=== PATIENT | male | born 1965 | race African-American/Black ===

== ENCOUNTER 2017-08-31 09:00 | Inpatient (IN) | payer MEDICARE, MEDICAID ==
[2017-08-31] VITALS (8 sets, daily range): BP systolic 151–221; BP diastolic 71–90
[~2017-08-31] VITALS: Ht 177.8 cm; Wt 63.0 kg
[2017-08-31 09:58] LABS: BASOPHILS % (AUTO) 1.1 % (0.0-2.0); EOSINOPHILS % (AUTO) 0.1 % (0.0-3.0); HEMATOCRIT 44.1 % (42.0-52.0); HEMOGLOBIN 14.1 G/DL (14.2-18.0); LYMPHOCYTES % (AUTO) 11.5 % (20.0-45.0); MEAN CORPUSCULAR VOLUME 87 FL (80-99); MONOCYTES % (AUTO) 4.1 % (1.0-10.0); NEUTROPHILS % (AUTO) 83.1 % (45.0-75.0); PLATELET COUNT 267 K/UL (150-450); WHITE BLOOD COUNT 9.8 K/UL (4.8-10.8)
[2017-08-31 10:11] LABS: ANION GAP 11 mmol/L (5-15); BLOOD UREA NITROGEN 31 mg/dL (7-18); CARBON DIOXIDE 26 MMOL/L (21-32); CHLORIDE 103 MMOL/L (98-107); CREATININE 2.1 MG/DL (0.55-1.30); POTASSIUM 4.5 MMOL/L (3.5-5.1); SODIUM 140 MMOL/L (136-145)
[2017-08-31 10:16] LABS: ALANINE AMINOTRANSFERASE 116 U/L (12-78); ALBUMIN 4.5 G/DL (3.4-5.0); ALBUMIN/GLOBULIN RATIO 0.9 (1.0-2.7); ALKALINE PHOSPHATASE 359 U/L (46-116); ASPARTATE AMINO TRANSFERASE 50 U/L (15-37); BILIRUBIN,TOTAL 0.2 MG/DL (0.2-1.0)
[2017-08-31] MEDS ORDERED: Bacitracin Oint UD TOPIC ONE ×2 (11:15→11:16)
--- NOTE | 2017-08-31 12:07 | Emergency Room Report ---
History of Present Illness General Chief Complaint: Multiple Trauma/Fall Source: Patient, Medical Record Present Illness HPI This patient is a poor historian, he comes from a facility and all he says is " I fell." He cannot be more specific. He denies any specific complaint. No fever , no shortness of breath, no chest pain, no vomiting, no diarrhea, no abdominal pain, no syncope, LOC, dizziness, lightheadedness, headache. Hx. limited due to condition. Allergies: Coded Allergies: No Known Allergies (Unverified , 08/31/17) Nursing Documentation-[facility] Past Medical History: No History, Except For Hx Hypertension: Yes Hx Diabetes: Yes - on insulin Review of Systems Constitutional: Reports: no symptoms Eye: Reports: no symptoms ENT: Reports: no symptoms Respiratory: Reports: no symptoms Cardiovascular: Reports: no symptoms Gastrointestinal: Reports: no symptoms Genitourinary: Reports: no symptoms Musculoskeletal: Reports: no symptoms Skin: Reports: no symptoms Psychiatric: Reports: no symptoms Neurological: Reports: no symptoms Endocrine: Reports: no symptoms Hematologic/Lymphatic: Reports: no symptoms Allergic: Reports: no symptoms Physical Exam Vital Signs Date Time Temp Pulse Resp B/P (MAP) Pulse Ox O2 Delivery O2 Flow Rate FiO2 08/31/17 09:01 98.0 63 18 171/84 99 Room Air 98.1 Sp02 EP Interpretation: reviewed, normal General Appearance: normal inspection, well appearing, no apparent distress, alert, GCS 15, non-toxic, thin Head: normocephalic, other - there is a nonlinear 1.5 cm shallow lac above/ lateral right eyebrow. no eye involvement, PERRL, EOMI Eyes: bilateral eye normal inspection, bilateral eye PERRL, bilateral eye EOMI ENT: normal ENT inspection, hearing grossly normal, normal pharynx, no angioedema, normal voice, moist mucus membranes Neck: normal inspection, full range of motion, supple, no meningismus, no bony tend Respiratory: normal inspection, lungs clear, normal breath sounds, no rhonchi, no respiratory distress, no retraction, no accessory muscle use, no wheezing Cardiovascular #1: normal inspection, regular rate, rhythm, no edema Gastrointestinal: normal inspection, normal bowel sounds, non tender, soft, no mass, non-distended Musculoskeletal: gait/station normal, normal range of motion Neurologic: normal inspection, alert, oriented x3, responsive, motor strength/ tone normal Psychiatric: normal inspection, judgement/insight normal, memory normal Suicide Risk Assessment: Suicidal Ideation: No Had intent to initiate attempt: No Pt's plan for suicide attempt: No Has means to complete attempt: No Skin: normal inspection, normal color, no rash, warm/dry Medical Decision Making Diagnostic Impression: Primary Impression: Laceration of face Additional Impressions: Minor head injury Hypertension ER Course RN placed dermabond; I checked valproic to make sure not toxic. CT noted and I asked RN to call PMD to alert as I have no old records here. Paperwork with patient states chronic falls. I do not think hydrocephalus is acute issue. I did ct to r/o SDH. Last Vital Signs Date Time Temp Pulse Resp B/P (MAP) Pulse Ox O2 Delivery O2 Flow Rate FiO2 08/31/17 10:06 98.1 67 27 201/84 100 Room Air 98.1 Disposition: HOME, SELF-CARE Condition: Stable Referrals: NON PHYSICIAN (PCP) Maxime Barone M.D. Aug 31, 2017 12:07
--- NOTE | 2017-08-31 12:16 | Diagnostic Imaging Report ---
Indications: Pain, status post fall Technique: Spiral acquisitions obtained through the brain. Angled axial and coronal 5 x 5 mm slices were reconstructed. Total dose length product 1471.09 mGycm. CTDI vol(s) 70.38 mGy. Dose reduction achieved using automated exposure control Comparison: None. Findings: There is enlargement of the ventricles and extra axial CSF spaces, the former somewhat out of proportion to the latter, which is rather prominent for age. No acute intracranial hemorrhage or edema. No mass effect or midline shift. There is periventricular deep white matter mild low attenuation. Lacunar infarcts are seen in the bilateral basal ganglia. Intact calvarium. Visualized orbits and sinuses are unremarkable. Impression: Evidence of cerebral volume loss, out of proportion to patient's age Ventriculomegaly, out of proportion to degree of sulcal dilatation. Most likely due to to the above mentioned volume loss, but the possibility of hydrocephalus should also be considered Old lacunar infarcts in the basal ganglia Negative for acute intracranial bleed or mass effect The CT scanner at [facility] is accredited by the [employer] and the scans are performed using protocols designed to limit radiation exposure to as low as reasonably achievable to attain images of sufficient resolution adequate for diagnostic evaluation.
[2017-08-31] MEDS ORDERED: Labetalol 5mg/ml 20ml vial IV ONE ×2 (12:45→14:30)
[2017-08-31] MEDS ORDERED: COLACE100 MG ORAL (12:54)
[2017-08-31] MEDS ORDERED: ASPIR 8181 MG ORAL (12:54)
[2017-08-31] MEDS ORDERED: PHENYTOIN SODI100 MG ORAL (12:54)
[2017-08-31] MEDS ORDERED: METOPROLOL TART50 M1 ORAL (12:54)
[2017-08-31] MEDS ORDERED: TYLENOL EXTRA500 MG ORAL (12:54)
[2017-08-31] MEDS ORDERED: HYDRALAZINE HCL25 M1 ORAL (12:54)
[2017-08-31] MEDS ORDERED: CRANBERRY450 M3 PO (12:54)
[2017-08-31] MEDS ORDERED: LEVEMIR FL100 UNIT/1 SUBQ (12:54)
[2017-08-31] MEDS ORDERED: AMLODIPINE BESY10 MG ORAL (12:54)
[2017-08-31] MEDS ORDERED: CATAPRES0.1 MG ORAL (12:54)
[2017-08-31] MEDS ORDERED: ZESTRIL20 MG ORAL (12:54)
[2017-08-31] MEDS ORDERED: MULTIVITAMINS1 EAC2 ORAL (12:54)
[2017-08-31] MEDS ORDERED: MILK OF MA2400 MG/10 ORAL (12:54)
[2017-08-31] MEDS ORDERED: LACTULOSE20 GM/301 ORAL (12:54)
[2017-08-31] MEDS ORDERED: BENZTROPINE ME0.5 MG PO (12:54)
[2017-08-31] MEDS ORDERED: DEPAKOTE ER250 MG ORAL (12:54)
[2017-08-31] MEDS ORDERED: NEURONTIN100 MG ORAL (12:54)
[2017-08-31] MEDS ORDERED: HALOPERIDOL1 MG ORAL (12:54)
--- NOTE | 2017-08-31 16:08 | Diagnostic Imaging Report ---
Indications: Head pain, status post fall in the emergency room Technique: Spiral acquisitions obtained through the brain. Angled axial and coronal 5 x 5 mm slices were reconstructed. Total dose length product 1347.93 mGycm. CTDI vol(s) 70.38 mGy. Dose reduction achieved using automated exposure control Comparison: 4 hours earlier Findings: Again demonstrated is enlargement of the ventricles and extra-axial CSF spaces, the former out of proportion to the latter. No acute intracranial hemorrhage or edema, mass effect, nor midline shift. Small bilateral basal ganglia old lacunar infarcts are again demonstrated. The calvarium is intact. The sinuses and mastoids are clear. The orbits are unremarkable Impression: Negative for acute intracranial bleed or mass effect No significant ion exchange operator 4 hours Stable ventriculomegaly and sulcal dilatation, probably on the basis of cerebral volume loss, out of proportion to age. However, the possibility of hydrocephalus should also be considered given the disproportionate ventriculomegaly The CT scanner at [facility] is accredited by the [employer] and the scans are performed using protocols designed to limit radiation exposure to as low as reasonably achievable to attain images of sufficient resolution adequate for diagnostic evaluation.
[2017-08-31 16:12] LABS: INR 0.9 (0.9-1.1)
[2017-08-31 16:16] LABS: APPEARANCE,URINE CLEAR; BILIRUBIN, URINE NEGATIVE (NEGATIVE); COLOR,URINE PALE YELLOW; GLUCOSE, URINE (UA) 4+ (NEGATIVE); KETONES,URINE 2+ (NEGATIVE); LEUKOCYTE ESTERASE ,URINE NEGATIVE (NEGATIVE); NITRITE,URINE NEGATIVE (NEGATIVE); PH,URINE 8 (4.5-8.0); PROTEIN,URINE 3+ (NEGATIVE); UROBILINOGEN,URINE NORMAL MG/DL (0.0-1.0)
[2017-08-31 16:25] LABS: CKMB 0.7 NG/ML (0.0-3.6)
[2017-08-31] MEDS ORDERED: DOCUSATE SODIU250 MG ORAL (18:49)
[2017-08-31] MEDS ORDERED: DEPAKOTE250 MG PO (18:49)
[2017-08-31] MEDS ORDERED: LISINOPRIL40 MG ORAL (18:49)
[2017-08-31] MEDS ORDERED: Insulin Human Regular 100units/ml 3ml IV ONE (19:15)
[2017-08-31] MEDS: NovoLOG Insulin Flexpen SUBQ SCH (22:32)
[2017-08-31] MEDS ORDERED: Acetaminophen 500mg (ES) tab ORAL PRN (22:45)
[2017-08-31] MEDS ORDERED: Milk of Magnesia 30ml Ud ORAL PRN (22:45)
[2017-09-01] VITALS (10 sets, daily range): BP systolic 136–193; BP diastolic 56–86
--- NOTE | 2017-09-01 01:45 | History and Physical Report ---
DATE OF ADMISSION: 08/31/2017 CHIEF COMPLAINT: Status post fall. 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 The patient himself is a poor historian and unable to provide coherent history. The patient's history is obtained from custodial staff, ER physician. The patient was noted to have abrasion laceration in the forehead, who came to [facility] for evaluation. In the emergency room, the patient was managed medically and found to have significantly elevated systolic blood pressure greater than 190 with elevation of glucose greater than 400. The patient also experienced vomiting and given history of fall and head trauma. The patient underwent CT scan as well as a followup CT scan, which revealed no acute process. The patient's case was discussed with the ER physician and the patient certainly will need admission for further medical management. PAST MEDICAL HISTORY: Hypertension, psychosis, hyperlipidemia, debility, and gait disability. PAST SURGICAL HISTORY: No recent surgery. MEDICATIONS: Refer to medication reconciliation. ALLERGIES: See allergy list. SOCIAL HISTORY: The patient is a custodial resident. No reports of any . FAMILY HISTORY: Noncontributory. WORK HISTORY: Noncontributory. REVIEW OF SYSTEMS: Noted in HPI. The patient is a poor historian. PHYSICAL EXAMINATION: GENERAL: The patient is seen in the hospital emergency room. The patient's blood pressure systolic greater than 190, heart rate 85, afebrile, and respirations of 18. The patient is a frail elderly man, dressing in the gurney, with vomitus on the gurney. The patient with a laceration abrasion to the forehead, but otherwise, cranial nerves nonfocal. HEENT: Trachea midline. Non-labored respiration. HEART: Regular. ABDOMEN: Soft and nondistended. No rebound. No guarding. Nonrigid. BREASTS: Deferred. GENITOURINARY: Deferred. NEUROLOGIC: The patient is awake, alert, but confused. ASSESSMENT AND PLAN: 1. Hypertensive emergency with vomiting. The patient inpatient telemetry care for blood pressure control. 2. Diabetes, out of control. The patient to be admitted and aggressive insulin administration with IV fluids. 3. Head trauma. Continue ER checks. Continue monitoring. 4. Medical care. GI and DVT prophylaxis. 5. Please see orders for further treatment plans. Miki Denis MD DR: VISHAL JOB#: [id number] CC:
[2017-09-01] MEDS: NovoLOG Insulin Flexpen SUBQ SCH ×4 (06:00→21:00)
[2017-09-01] MEDS: Metoprolol Succinate XL 50mg tab ORAL SCH (08:27)
[2017-09-01] MEDS: Haloperidol 1mg tab ORAL SCH ×2 (08:27→18:40)
[2017-09-01] MEDS: Docusate 250mg cap ORAL SCH (08:28)
[2017-09-01] MEDS: HydrALAZINE 25mg tab ORAL SCH ×3 (08:30→18:40)
[2017-09-01] MEDS: Phenytoin 100mg cap ORAL SCH ×3 (08:30→18:39)
[2017-09-01] MEDS: Lactulose 10gm/15ml UDC ORAL SCH ×4 (08:30→22:12)
[2017-09-01] MEDS: Neosporin Oint Ud Pkt TOPIC SCH (08:30)
[2017-09-01] MEDS: Aspirin Baby 81mg ORAL SCH (08:30)
[2017-09-01] MEDS: Enoxaparin 30mg Inj SUBQ SCH (08:33)
[2017-09-01] MEDS: Lisinopril 10mg tab ORAL SCH (08:37)
[2017-09-01] MEDS: Levemir Flexpen SUBQ SCH ×2 (08:50→18:53)
--- NOTE | 2017-09-01 10:20 | Diagnostic Imaging Report ---
Indication: Abdominal pain Technique: Supine view of the abdomen Comparison: none Findings: Bowel gas pattern is unremarkable. Calcifications in the epigastric region may indicate chronic calcifying pancreatitis. There is right hip surgical hardware and posttraumatic deformity Impression: No acute process. Findings as noted
--- NOTE | 2017-09-01 10:39 | General Progress Note ---
Assessment/Plan Problem List: (1) Minor head injury ICD Codes: S09.90XA - Unspecified injury of head, initial encounter SNOMED: 585946622 (2) Laceration of face ICD Codes: S01.81XA - Laceration without foreign body of other part of head, initial encounter SNOMED: 429116277 (3) Hyperglycemia ICD Codes: R73.9 - Hyperglycemia, unspecified SNOMED: 60875402 (4) Intractable vomiting ICD Codes: R11.10 - Vomiting, unspecified SNOMED: 474822086 (5) Hypertension ICD Codes: I10 - Essential (primary) hypertension SNOMED: 09546745 Status: stable Assessment/Plan s/p fall laceration DM hyperglycemia hypertensive emergency psychosis Subjective Date patient seen: Sep 01, 2017 Time patient seen: 10:31 Constitutional: Reports: no symptoms HEENT: Reports: no symptoms Cardiovascular: Reports: no symptoms Respiratory: Reports: no symptoms Gastrointestinal/Abdominal: Reports: no symptoms Genitourinary: Reports: no symptoms Neurologic/Psychiatric: Reports: no symptoms Endocrine: Reports: no symptoms Hematologic/Lymphatic: Reports: no symptoms Allergies: Coded Allergies: No Known Allergies (Unverified , 08/31/17) Subjective no new issues; Objective Last 24 Hour Vital Signs Date Time Temp Pulse Resp B/P (MAP) Pulse Ox O2 Delivery O2 Flow Rate FiO2 09/01/17 08:37 178/80 09/01/17 08:30 178/80 09/01/17 08:28 178/80 09/01/17 08:28 94 178/80 09/01/17 08:27 94 178/80 09/01/17 08:00 97.8 94 20 178/80 (112) 98 97.8 09/01/17 06:20 100 167/75 (105) 09/01/17 06:05 198/80 09/01/17 05:14 98.7 93 17 164/80 (108) 96 98.7 09/01/17 04:00 97.5 92 20 184/80 (114) 97 97.5 09/01/17 04:00 95 09/01/17 02:19 136/56 (82) 09/01/17 01:41 98.2 87 20 193/86 (121) 98 98.2 09/01/17 01:34 193/86 09/01/17 00:00 98.2 87 20 193/86 (121) 98 98.2 09/01/17 00:00 94 08/31/17 20:20 36.35407 66 20 166/78 95 Room Air 207.5 97 08/31/17 20:20 97.5 97 20 166/78 (107) 95 97.5 08/31/17 20:20 Room Air 08/31/17 20:20 93 08/31/17 19:39 98.5 66 14 151/71 100 98.5 08/31/17 18:30 98.1 97 18 186/83 100 Room Air 98.1 08/31/17 17:09 205/86 08/31/17 16:38 98.1 93 27 158/85 100 Room Air 98.1 08/31/17 16:04 98.1 90 27 185/88 100 Room Air 98.1 08/31/17 14:40 202/81 08/31/17 14:38 91 214/86 08/31/17 14:15 98.1 87 23 202/87 100 Room Air 98.1 08/31/17 12:43 78 221/90 08/31/17 12:11 98.1 78 27 221/90 100 Room Air 98.1 Intake and Output 08/31/17 09/01/17 19:00 07:00 Intake Total 2200 ml 120 ml Output Total 250 ml Balance 1950 ml 120 ml Intake Oral 120 ml IV Total 2200 ml Output Emesis 250 ml # Voids 5 # Bowel Movements 2 Laboratory Tests 08/31/17 16:05: Urine Color Pale yellow, Urine Appearance Clear, Urine pH 8, Urine Specific [place] 1.010, Urine Protein 3+H, Urine Glucose (UA) 4+H, Urine Ketones 2+H, Urine Occult Blood 1+H, Urine Nitrite Negative, Urine Bilirubin Negative, Urine Urobilinogen Normal, Urine Leukocyte Esterase Negative, Urine RBC 0-2H, Urine WBC 0-2, Urine Squamous Epithelial Cells None, Urine Bacteria None Height (Feet): 5 Height (Inches): 10.00 Weight (Pounds): 139 General Appearance: no apparent distress EENT: PERRL/EOMI Neck: non-tender Cardiovascular: normal rate Respiratory/Chest: chest wall non-tender Abdomen: non tender Pelvis: normal rectal exam Extremities: non-tender Edema: trace edema Neurologic: alert Renzo Denis M.D. Sep 01, 2017 10:39
--- NOTE | 2017-09-01 20:09 | Cardiology Progress Note ---
Assessment/Plan Assessment/Plan being a poor historian hampers ability to accurately diagnose cause echo shows sever lvh and hyperdynamic systolic function not clear if he actually did have syncope or fall bp being so high makes volume depletion as a cause less likely but not impossible it is conceivable that if he did get dehydration in the settign of lvh and hyperdynamic systolic function that he may have expereince cavity obliteration and secondary syncop on the other hand cannot rule out the possibility fo seizure , level of his anti epileptic drug were low repeat cardaic enzyme , ekg , orthostatic vitals to be documented PT eval for safetly ivf to be dcd if not orthostatic [id number] thank you petey villalta [phone] Objective Last 24 Hour Vital Signs Date Time Temp Pulse Resp B/P (MAP) Pulse Ox O2 Delivery O2 Flow Rate FiO2 09/01/17 18:40 152/73 09/01/17 18:40 152/79 09/01/17 16:00 70 09/01/17 16:00 97.9 73 20 140/70 (93) 98 97.9 09/01/17 13:35 152/73 09/01/17 13:30 152/73 09/01/17 12:00 98.1 98 20 152/73 (99) 98 98.1 09/01/17 12:00 79 09/01/17 09:00 Room Air 09/01/17 08:37 178/80 09/01/17 08:30 178/80 09/01/17 08:28 178/80 09/01/17 08:28 94 178/80 09/01/17 08:27 94 178/80 09/01/17 08:00 97.8 94 20 178/80 (112) 98 97.8 09/01/17 08:00 92 09/01/17 06:20 100 167/75 (105) 09/01/17 06:05 198/80 09/01/17 05:14 98.7 93 17 164/80 (108) 96 98.7 09/01/17 04:00 97.5 92 20 184/80 (114) 97 97.5 09/01/17 04:00 95 09/01/17 02:19 136/56 (82) 09/01/17 01:41 98.2 87 20 193/86 (121) 98 98.2 7/19/18 01:34 193/86 09/01/17 00:00 98.2 87 20 193/86 (121) 98 98.2 09/01/17 00:00 94 08/31/17 20:20 36.50265 66 20 166/78 95 Room Air 207.5 97 08/31/17 20:20 97.5 97 20 166/78 (107) 95 97.5 08/31/17 20:20 Room Air 08/31/17 20:20 93 Intake and Output 08/31/17 09/01/17 19:00 07:00 Intake Total 2200 ml 120 ml Output Total 250 ml Balance 1950 ml 120 ml Intake Oral 120 ml IV Total 2200 ml Output Emesis 250 ml # Voids 5 # Bowel Movements 2 Petey Villalta MD Sep 01, 2017 20:09
[2017-09-02] VITALS: BP 155/72
[2017-09-02] MEDS: NovoLOG Insulin Flexpen SUBQ SCH ×4 (06:30→20:34)
[2017-09-02 07:00] VITALS: BP 157/77
[2017-09-02 07:15] LABS: EOSINOPHILS % (AUTO) 1.1 % (0.0-3.0); HEMATOCRIT 34.1 % (42.0-52.0); HEMOGLOBIN 11.2 G/DL (14.2-18.0); LYMPHOCYTES % (AUTO) 19.9 % (20.0-45.0); MEAN CORPUSCULAR VOLUME 86 FL (80-99); MONOCYTES % (AUTO) 8.4 % (1.0-10.0); NEUTROPHILS % (AUTO) 69.6 % (45.0-75.0); PLATELET COUNT 250 K/UL (150-450); RED BLOOD COUNT 3.94 M/UL (4.70-6.10); RED CELL DISTRIBUTION WIDTH 11.1 % (11.6-14.8); WHITE BLOOD COUNT 9.5 K/UL (4.8-10.8)
[2017-09-02 07:47] LABS: ALANINE AMINOTRANSFERASE 69 U/L (12-78); ALBUMIN 3.2 G/DL (3.4-5.0); ALBUMIN/GLOBULIN RATIO 0.8 (1.0-2.7); ALKALINE PHOSPHATASE 232 U/L (46-116); ANION GAP 6 mmol/L (5-15); ASPARTATE AMINO TRANSFERASE 38 U/L (15-37); BILIRUBIN,TOTAL 0.2 MG/DL (0.2-1.0); BLOOD UREA NITROGEN 19 mg/dL (7-18); CALCIUM 8.6 MG/DL (8.5-10.1); CARBON DIOXIDE 29 MMOL/L (21-32); CHLORIDE 112 MMOL/L (98-107); CREATININE 1.7 MG/DL (0.55-1.30); POTASSIUM 3.5 MMOL/L (3.5-5.1); SODIUM 147 MMOL/L (136-145)
[2017-09-02] MEDS: Lisinopril 10mg tab ORAL SCH (09:27)
[2017-09-02] MEDS: Haloperidol 1mg tab ORAL SCH ×2 (09:28→18:28)
[2017-09-02] MEDS: Docusate 250mg cap ORAL SCH (09:28)
[2017-09-02] MEDS: Neosporin Oint Ud Pkt TOPIC SCH (09:29)
[2017-09-02] MEDS: Metoprolol Succinate XL 50mg tab ORAL SCH (09:29)
[2017-09-02] MEDS: Aspirin Baby 81mg ORAL SCH (09:29)
[2017-09-02] MEDS: Phenytoin 100mg cap ORAL SCH ×3 (09:30→18:28)
[2017-09-02] MEDS: HydrALAZINE 25mg tab ORAL SCH ×3 (09:30→18:28)
[2017-09-02] MEDS: Lactulose 10gm/15ml UDC ORAL SCH ×4 (09:30→20:31)
[2017-09-02] MEDS: Enoxaparin 30mg Inj SUBQ SCH ×2 (09:32→20:34)
[2017-09-02] MEDS: Levemir Flexpen SUBQ SCH ×2 (09:47→18:46)
--- NOTE | 2017-09-02 10:15 | Consultation ---
DATE OF CONSULTATION: 09/01/2017 CARDIOLOGY CONSULTATION CONSULTING PHYSICIAN: Parveen Villalta M.D. REFERRING PHYSICIAN: Renzo Denis M.D. REASON FOR CONSULTATION: Hypertensive urgency and syncope. HISTORY OF PRESENT ILLNESS: This is a very unfortunate middle-aged gentleman who has multiple medical problems, is admitted to convalescent facility, as I understand that the patient was transferred from the convalescent facility (patient himself is very poor historian). Apparently, he told the emergency room that he fell, he is not able to provide more specific information and according to the sales property manager run sheet, the patient sustained a right eye laceration and was transferred for that 01:05 after his fall. Really, no other details available. The sales property manager run sheet indicated the patient had a blood pressure of 178/76 at the time he was found. Other records indicate the patient may have had syncopal events and subsequent fall off the toilet in the bathroom. The alf staff have provided the information to Dr. Denis. In the emergency room, the patient was found to have significantly elevated blood pressure, blood sugar, had several episodes of vomiting. He had two separate CT scans, which were unremarkable, but he has been admitted to the hospital for further management. This consultation requested for evaluation and management of possible syncopal episode. PAST MEDICAL HISTORY: According to the chart has a history of affective mood disorder, dysphagia, schizoaffective disorder, diabetes mellitus, pancreatitis, tobacco use disorder, schizophrenia, hypertensive crises, hyperlipidemia, type 2 diabetes, toxic metabolic encephalopathy, chronic stage 3 kidney disease, epilepsy, mononeuropathy, gastroesophageal reflux disease, gait disorder, history of fall, anemia and hypertension. MEDICATIONS: His medications reported at the convalescent facility include Depakote 250 mg 2 times daily. He is on hydralazine 25 mg 3 times a day, lactulose on a p.r.n. basis, 02:57 Lopressor 50 mg three times, milk of magnesia, multivitamins, Neurontin 100 mg 2 times daily, Dilantin, Tylenol, Zestril 40 mg 1 time daily. He takes amlodipine 10 mg daily, aspirin 81 mg, clonidine 0.1 mg q.8 h., Cogentin, Colace, and cranberry tablet extract. ALLERGIES: Really none known. SOCIAL HISTORY: He denies any smoking or drinking. He is a resident of a convalescent facility at [facility]. REVIEW OF SYSTEMS: GASTROINTESTINAL: He denies. GENITOURINARY: He denies. PULMONARY: He denies. CONSTITUTIONAL: He denies. NEUROLOGIC: He denies, however, the patient is quite confused and the information he provides is somewhat suspicious for 03:43. PHYSICAL EXAMINATION: GENERAL: Shows to be middle-aged gentleman, in no respiratory distress. VITAL SIGNS: Blood pressure is anywhere between 152/73, most recently 150/70 to 152/73, he has had blood pressures as high as 221/90 here in the emergency room, his heart rates in the 90s and temperature 97.8 degrees. NECK: Supple. No jugular venous distention. No abdominojugular reflux noted. LUNGS: Clear to auscultation and percussion. CARDIAC: S1 is normal. S2 is normal. Regular rate and rhythm. No heaves or thrills noted. There is a faint systolic ejection murmur noted. ABDOMEN: Soft and nontender. Positive bowel sounds. EXTREMITIES: There is no clubbing, cyanosis, or edema. LABORATORY AND DIAGNOSTIC DATA: White count of 9.8, hemoglobin 14.1, and platelet count of 267. Sodium is 130, potassium 4.5, chloride 102, bicarbonate 26, BUN 31, creatinine 2.4, and glucose of 04:34. AST and ALT are 50 and 116 respectively and alkaline phosphate was 259. Total CK of 142. Troponin of 0.04. Coags, INR was 0.9 and PTT of 22. Urinalysis appear unremarkable. Valproic acid is fairly unremarkable. 04:54 ventriculomegaly. Abdominal x-ray was fairly unremarkable does not have any . Carotid duplex shows mild degree of carotid stenosis between 30% alongside on left and 40% to 50% on the right side. Echocardiogram was performed shows hyperdynamic LV systolic function with ejection fraction of 70%-75%, severe left ventricular hypertrophy is documented. No significant valvular stenoses being documented. PA pressure of 28. His electrocardiogram shows sinus rhythm with left ventricular hypertrophy voltage criteria for left ventricular hypertrophy and some nonspecific T-wave changes. Early repolarization changes may be 06:01 EKG strip. Telemetry data is indicated reveals sinus rhythm. No bradycardia and no tachycardias have been documented. ASSESSMENT AND PLAN: 1. Altered level of consciousness. 2. Possible syncope. 3. Severe left ventricular hypertrophy. 4. Hyperdynamic left ventricular systolic function. 5. Diabetes mellitus. 6. Systemic hypertension. 7. Chronic kidney disease. 8. Schizophrenia. 9. Severe profound ventriculomegaly out of proportion for the patient's age. Dr. Denis, this patient was seen in cardiac consultation. The patient is unfortunately very poor historian. His blood pressure has been better controlled at the present time and appears appropriate. His echocardiogram was suspicious for hypertrophic disease secondary to left ventricular hypertrophy. It is 07:16 possible that with the combination of uncontrolled diabetes and hyperglycemia and glucosuria that he actually had a component of intracardiac volume depletion resulting to change in left ventricular output, possibly even to cavity obliteration, may have possibly resulting in long-term loss of consciousness. However, since this was not a witnessed event, other etiologies need to be entertained including the fact that he has had a history of seizures, on several antiepileptic medications, yet undetectable level of the one of the antiepileptic. His blood pressure has dropped and low since admission, back on the higher side 08:09 suspicious that the volume depletion as a cause may be much less probability. Other etiologies to be looked into seizures and of course nonsyncopal falls and cause of fall. I would recommend observation on telemetry for another 24 hours and 08:40 of his medications for blood pressure to avoid strict control of blood pressure to avoid contribution of hypotension. IV fluids can be discontinued if adequate p.o. intake is ascertained. A set of cardiac enzymes and EKG will be ordered for this evening as well as for tomorrow morning and evaluation for physical therapy has been ordered about safety of ambulation. Dr. Denis, thank you for allowing me to participate of this patient for safety ambulation. Orthostatic vitals will be ordered. IV fluids will be discontinued if the patient is not orthostatic. Antihypertensive medication to be continued. Parveen Villalta M.D. DR: NINA JOB#: [id number] CC:
[2017-09-02 12:00] VITALS: BP 138/67
--- NOTE | 2017-09-02 13:25 | Consultation ---
History of Present Illness General Date patient seen: Sep 01, 2017 Chief Complaint: Multiple Trauma/Fall Present Illness HPI 52 yo male who has multiple medical problems, and schizophrenia is admitted to convalescent facility.patient himself is very poor historian. the pt is easily agitated the pt stated that he wants to sleep. he fell and has a concussion Allergies: Coded Allergies: No Known Allergies (Unverified , 08/31/17) Medication History Scheduled Amlodipine Besylate* (Amlodipine Besylate*), 10 MG ORAL DAILY, (Reported) Aspirin* (Aspir 81*), 81 MG ORAL DAILY, (Reported) Benztropine Mesylate* (Cogentin*), 1 MG PO BID, (Reported) Clonidine Hcl* (Catapres*), 0.1 MG ORAL EVERY 8 HOURS, (Reported) Cranberry Fruit Concentrate (Cranberry), 2 TAB PO DAILY, (Reported) Divalproex Sodium* (Depakote*), 250 MG PO BID, (Reported) Docusate Sodium* (Docusate Sodium*), 250 MG ORAL DAILY, (Reported) Gabapentin* (Neurontin*), 100 MG ORAL BID, (Reported) Haloperidol* (Haldol*), 1 MG ORAL BID, (Reported) Hydralazine Hcl* (Hydralazine Hcl*), 25 MG ORAL TID, (Reported) Insulin Detemir (Levemir Flexpen), 15 UNITS SUBQ BID, (Reported) Lactulose (Lactulose*), 70 GM ORAL EVERY 6 HOURS, (Reported) Lisinopril* (Lisinopril*), 40 MG ORAL DAILY, (Reported) Metoprolol Tartrate* (Metoprolol Tartrate*), 50 MG ORAL BID, (Reported) Multivitamins* (Multivitamins*), 1 TAB ORAL DAILY, (Reported) Phenytoin Sodium Extended* (Phenytoin Sodium Extended*), 100 MG ORAL THREE TIMES A DAY, (Reported) Scheduled PRN Acetaminophen* (Tylenol Extra Strength*), 2 TAB ORAL Q6H PRN for Mild Pain/Temp > 100.5, (Reported) Magnesium Hydroxide* (Milk Of Magnesia*), 30 ML ORAL DAILY PRN for Constipation, (Reported) Discontinued Medications Docusate Sodium* (Colace*), 250 MG ORAL DAILY, (Reported) Discontinued Reason: Prescription changed Lisinopril* (Zestril*), 40 MG ORAL DAILY, (Reported) Discontinued Reason: Prescription changed Patient History Limited by: medical condition History Provided By: Patient, Medical Record, PMD Healthcare decision maker Resuscitation status Full Code Advanced Directive on File Past Medical/Surgical History Past Medical/Surgical History: (1) Minor head injury (2) Laceration of face (3) Hyperglycemia (4) Hypertension (5) Intractable vomiting Review of Systems Psychiatric: Reports: prior hx, anxiety, depressed feelings, emotional problems , hallucinations Physical Exam General Appearance: no apparent distress, alert Neurologic: responsive, depressed affect Last 24 Hour Vital Signs Date Time Temp Pulse Resp B/P (MAP) Pulse Ox O2 Delivery O2 Flow Rate FiO2 09/02/17 09:30 130/68 09/02/17 09:30 166/78 09/02/17 09:29 79 130/68 09/02/17 09:28 79 130/68 09/02/17 09:27 130/68 09/02/17 08:00 61 09/02/17 07:00 99.3 69 20 157/77 (103) 97 99.3 09/02/17 04:00 71 09/02/17 00:00 73 09/02/17 00:00 100 68 72 09/02/17 00:00 99.0 100 18 155/72 (99) 97 99.0 09/01/17 21:00 Room Air 09/01/17 20:00 65 09/01/17 20:00 100.0 68 18 143/60 (87) 97 100.0 09/01/17 18:40 152/73 09/01/17 18:40 152/79 09/01/17 16:00 70 09/01/17 16:00 97.9 73 20 140/70 (93) 98 97.9 09/01/17 13:35 152/73 09/01/17 13:30 152/73 Intake and Output 09/01/17 09/02/17 19:00 07:00 Intake Total 900 ml 200 ml Balance 900 ml 200 ml Intake Oral 900 ml 200 ml # Voids 5 # Bowel Movements 2 Laboratory Tests Test 09/01/17 21:20 09/02/17 06:21 Troponin I 0.889 ng/mL (0.000-0.056) 0.802 ng/mL (0.000-0.056) White Blood Count 9.5 K/UL (4.8-10.8) Red Blood Count 3.94 M/UL (4.70-6.10) L Hemoglobin 11.2 G/DL (14.2-18.0) L Hematocrit 34.1 % (42.0-52.0) L Mean Corpuscular Volume 86 FL (80-99) Mean Corpuscular Hemoglobin 28.5 PG (27.0-31.0) Mean Corpuscular Hemoglobin Concent 33.0 G/DL (32.0-36.0) Red Cell Distribution Width 11.1 % (11.6-14.8) L Platelet Count 250 K/UL (150-450) Mean Platelet Volume 7.0 FL (6.5-10.1) Neutrophils (%) (Auto) 69.6 % (45.0-75.0) Lymphocytes (%) (Auto) 19.9 % (20.0-45.0) L Monocytes (%) (Auto) 8.4 % (1.0-10.0) Eosinophils (%) (Auto) 1.1 % (0.0-3.0) Basophils (%) (Auto) 1.0 % (0.0-2.0) Sodium Level 147 MMOL/L (136-145) H Potassium Level 3.5 MMOL/L (3.5-5.1) Chloride Level 112 MMOL/L (98-107) H Carbon Dioxide Level 29 MMOL/L (21-32) Anion Gap 6 mmol/L (5-15) Blood Urea Nitrogen 19 mg/dL (7-18) H Creatinine 1.7 MG/DL (0.55-1.30) H Estimat Glomerular Filtration Rate 51.1 mL/min (>60) Glucose Level 58 MG/DL (74-106) L Calcium Level 8.6 MG/DL (8.5-10.1) Magnesium Level 2.3 MG/DL (1.8-2.4) Total Bilirubin 0.2 MG/DL (0.2-1.0) Aspartate Amino Transf (AST/SGOT) 38 U/L (15-37) H Alanine Aminotransferase (ALT/SGPT) 69 U/L (12-78) Alkaline Phosphatase 232 U/L (46-116) H Pro-B-Type Natriuretic Peptide 1249 pg/mL (0-125) H Total Protein 7.0 G/DL (6.4-8.2) Albumin 3.2 G/DL (3.4-5.0) L Globulin 3.8 g/dL Albumin/Globulin Ratio 0.8 (1.0-2.7) L Thyroid Stimulating Hormone (TSH) 0.611 uiU/mL (0.358-3.740) Height (Feet): 5 Height (Inches): 10.00 Weight (Pounds): 139 Medications Current Medications Medications (Trade) Dose Ordered Sig/Alessandra Route PRN Reason Start Time Stop Time Status Last Admin Dose Admin Acetaminophen (Tylenol) 500 mg Q4H PRN ORAL Mild Pain/Temp > 100.5 08/31/17 22:45 09/30/17 22:44 Amlodipine Besylate (Norvasc) 10 mg DAILY ORAL 09/01/17 09:00 10/01/17 08:59 09/02/17 09:28 Aspirin (ASA) 81 mg DAILY ORAL 09/01/17 09:00 10/01/17 08:59 09/02/17 09:29 Benztropine Mesylate (Cogentin) 1 mg BID IM 09/01/17 09:00 10/01/17 08:59 09/02/17 09:31 Clonidine HCl (Catapres Tab) 0.1 mg TID ORAL 09/01/17 09:00 10/01/17 08:59 09/02/17 09:30 Dextrose (Dextrose 50%) 25 ml STAT PRN IV Hypoglycemia 08/31/17 21:15 09/30/17 21:14 Dextrose (Dextrose 50%) 50 ml STAT PRN IV Hypoglycemia 08/31/17 21:15 09/30/17 21:14 09/02/17 07:05 Divalproex Sodium (Depakote) 250 mg EVERY 12 HOURS ORAL 09/01/17 09:00 10/01/17 08:59 09/02/17 09:28 Docusate Sodium (Colace) 250 mg DAILY ORAL 09/01/17 09:00 10/01/17 08:59 09/02/17 09:28 Enoxaparin Sodium (Lovenox) 30 mg DAILY SUBQ 09/01/17 09:00 10/01/17 08:59 09/02/17 09:32 Gabapentin (Neurontin) 100 mg BID ORAL 09/01/17 09:00 10/01/17 08:59 09/02/17 09:30 Haloperidol (Haldol) 1 mg BID ORAL 09/01/17 09:00 10/01/17 08:59 09/02/17 09:28 Hydralazine HCl (Apresoline) 10 mg Q4H PRN IV SBP>160 09/01/17 01:30 10/01/17 01:29 09/01/17 06:05 Hydralazine HCl (Apresoline) 25 mg TID ORAL 09/01/17 09:00 10/01/17 08:59 09/02/17 09:30 Insulin Aspart (NovoLOG) BEFORE MEALS AND HS SUBQ 08/31/17 22:30 09/30/17 22:29 09/01/17 17:29 Insulin Detemir (Levemir) 15 units BID SUBQ 09/01/17 09:00 10/01/17 08:59 09/02/17 09:47 Lactulose (Cephulac) 10 gm FOUR TIMES A DAY ORAL 09/01/17 09:00 10/01/17 08:59 09/02/17 09:30 Lisinopril (Zestril) 40 mg DAILY ORAL 09/01/17 09:00 10/01/17 08:59 09/02/17 09:27 Magnesium Hydroxide (Mom) 30 ml HSPRN PRN ORAL Constipation 08/31/17 22:45 09/30/17 22:44 Metoprolol Succinate (Toprol XL) 50 mg DAILY ORAL 09/01/17 09:00 10/01/17 08:59 09/02/17 09:29 Multivitamins (Multivitamins) 1 tab DAILY ORAL 09/01/17 09:00 10/01/17 08:59 09/02/17 09:28 Neomycin/ Polymyxin/ Bacitracin (Neosporin) 1 applic DAILY TOPIC 09/01/17 09:00 10/01/17 08:59 09/02/17 09:29 Phenytoin (Dilantin) 100 mg TID ORAL 09/01/17 09:00 10/01/17 08:59 09/02/17 09:30 Assessment/Plan Assessment/Plan schizophrenia will hold psych meds Andrey Bledsoe MD Sep 02, 2017 13:24
[2017-09-02 16:00] VITALS: BP 149/69
--- NOTE | 2017-09-02 17:02 | Cardiology Report ---
APPROVED REPORT EKG Measurement Heart [id number] HI 186P68 [id number] Normal sinus rhythm Possible Left atrial enlargement Left ventricular hypertrophy ST elevation, consider early repolarization, pericarditis, or injury Nonspecific T wave abnormality Abnormal ECG
--- NOTE | 2017-09-02 17:07 | Cardiology Report ---
APPROVED REPORT EKG Measurement Heart [id number] NE 168P20 [id number] Sinus rhythm with premature atrial complexes Left ventricular hypertrophy with repolarization abnormality ST elevation, consider anterior injury or acute infarct Abnormal ECG
--- NOTE | 2017-09-02 18:25 | Cardiology Progress Note ---
Assessment/Plan Assessment/Plan 1. Altered level of consciousness. 2. Possible syncope. 3. Severe left ventricular hypertrophy. 4. Hyperdynamic left ventricular systolic function. 5. Diabetes mellitus. 6. Systemic hypertension. 7. Chronic kidney disease. 8. Schizophrenia. 9. Severe profound ventriculomegaly out of proportion for the patient's age. 10. NSTEMI 11. Hypertrophic heart disease with lvot gradiet of 19 mmhg at rest echo reviewed hyperdyanmic lv systlic fucntion there is lvh concentric but the septum is worse trop increased still on upward trend on ecotrin will add statin he will not be able to consent for testing , sister may need to consent per peggy vang idenified [id number] listed as responsible democrat on snf trnasfer noted he has inverted t wave picture that would be expcected with lvh however his admission ekg did not show the t wave abnormality he may need further testing he deneis any cp but difficutl to tell with his mentation Subjective Cardiovascular: Denies: chest pain, lightheadedness Respiratory: Denies: shortness of breath Gastrointestinal/Abdominal: Denies: abdominal pain Genitourinary: Denies: burning Objective Last 24 Hour Vital Signs Date Time Temp Pulse Resp B/P (MAP) Pulse Ox O2 Delivery O2 Flow Rate FiO2 09/02/17 16:00 97.8 60 20 149/69 (95) 100 97.8 09/02/17 16:00 58 09/02/17 14:44 63 09/02/17 13:26 138/67 09/02/17 13:26 138/67 09/02/17 12:00 98.9 61 20 138/67 (90) 96 98.9 09/02/17 09:30 130/68 09/02/17 09:30 166/78 09/02/17 09:29 79 130/68 09/02/17 09:28 79 130/68 09/02/17 09:27 130/68 09/02/17 09:00 Room Air 09/02/17 08:00 61 09/02/17 07:00 99.3 69 20 157/77 (103) 97 99.3 09/02/17 04:00 71 09/02/17 00:00 73 09/02/17 00:00 100 68 72 09/02/17 00:00 99.0 100 18 155/72 (99) 97 99.0 09/01/17 21:00 Room Air 09/01/17 20:00 65 09/01/17 20:00 100.0 68 18 143/60 (87) 97 100.0 09/01/17 18:40 152/73 09/01/17 18:40 152/79 General Appearance: no apparent distress, alert Neck: supple Cardiovascular: normal rate Respiratory/Chest: lungs clear Abdomen: normal bowel sounds, non tender, soft Extremities: no swelling Intake and Output 09/01/17 09/02/17 19:00 07:00 Intake Total 900 ml 200 ml Balance 900 ml 200 ml Intake Oral 900 ml 200 ml # Voids 5 # Bowel Movements 2 Laboratory Tests Test 09/01/17 21:20 09/02/17 06:21 Troponin I 0.889 ng/mL (0.000-0.056) 0.802 ng/mL (0.000-0.056) White Blood Count 9.5 K/UL (4.8-10.8) Red Blood Count 3.94 M/UL (4.70-6.10) L Hemoglobin 11.2 G/DL (14.2-18.0) L Hematocrit 34.1 % (42.0-52.0) L Mean Corpuscular Volume 86 FL (80-99) Mean Corpuscular Hemoglobin 28.5 PG (27.0-31.0) Mean Corpuscular Hemoglobin Concent 33.0 G/DL (32.0-36.0) Red Cell Distribution Width 11.1 % (11.6-14.8) L Platelet Count 250 K/UL (150-450) Mean Platelet Volume 7.0 FL (6.5-10.1) Neutrophils (%) (Auto) 69.6 % (45.0-75.0) Lymphocytes (%) (Auto) 19.9 % (20.0-45.0) L Monocytes (%) (Auto) 8.4 % (1.0-10.0) Eosinophils (%) (Auto) 1.1 % (0.0-3.0) Basophils (%) (Auto) 1.0 % (0.0-2.0) Sodium Level 147 MMOL/L (136-145) H Potassium Level 3.5 MMOL/L (3.5-5.1) Chloride Level 112 MMOL/L (98-107) H Carbon Dioxide Level 29 MMOL/L (21-32) Anion Gap 6 mmol/L (5-15) Blood Urea Nitrogen 19 mg/dL (7-18) H Creatinine 1.7 MG/DL (0.55-1.30) H Estimat Glomerular Filtration Rate 51.1 mL/min (>60) Glucose Level 58 MG/DL (74-106) L Calcium Level 8.6 MG/DL (8.5-10.1) Magnesium Level 2.3 MG/DL (1.8-2.4) Total Bilirubin 0.2 MG/DL (0.2-1.0) Aspartate Amino Transf (AST/SGOT) 38 U/L (15-37) H Alanine Aminotransferase (ALT/SGPT) 69 U/L (12-78) Alkaline Phosphatase 232 U/L (46-116) H Pro-B-Type Natriuretic Peptide 1249 pg/mL (0-125) H Total Protein 7.0 G/DL (6.4-8.2) Albumin 3.2 G/DL (3.4-5.0) L Globulin 3.8 g/dL Albumin/Globulin Ratio 0.8 (1.0-2.7) L Thyroid Stimulating Hormone (TSH) 0.611 uiU/mL (0.358-3.740) Microbiology Date/Time Source Procedure Growth Status 08/31/17 17:05 Nasal Nares MRSA Culture - Final NO METHICILLIN RESISTANT STAPH AUREUS... Complete 08/31/17 17:05 Rectum VRE Culture - Final NO VANCOMYCIN RESISTANT ENTEROCOCCUS ... Complete 08/31/17 17:05 Rectum - Final NO CARBAPENEM-RESISTANT ENTEROBACTERI... Complete Parveen Villalta MD Sep 02, 2017 18:25
[2017-09-02 21:00] VITALS: BP 157/72
[2017-09-03] VITALS: BP 136/65
[2017-09-03 04:00] VITALS: BP 154/79
[2017-09-03] MEDS: NovoLOG Insulin Flexpen SUBQ SCH ×4 (06:15→20:35)
[2017-09-03 08:00] VITALS: BP 151/70
[2017-09-03] MEDS: Neosporin Oint Ud Pkt TOPIC SCH (09:05)
[2017-09-03] MEDS: Docusate 250mg cap ORAL SCH (09:05)
[2017-09-03] MEDS: Haloperidol 1mg tab ORAL SCH ×2 (09:05→17:49)
[2017-09-03] MEDS: Lactulose 10gm/15ml UDC ORAL SCH ×4 (09:05→20:36)
[2017-09-03] MEDS: Aspirin Baby 81mg ORAL SCH (09:06)
[2017-09-03] MEDS: Metoprolol Succinate XL 50mg tab ORAL SCH (09:06)
[2017-09-03] MEDS: Phenytoin 100mg cap ORAL SCH ×3 (09:06→17:48)
[2017-09-03] MEDS: HydrALAZINE 25mg tab ORAL SCH ×3 (09:06→17:48)
[2017-09-03] MEDS: Lisinopril 10mg tab ORAL SCH (09:07)
[2017-09-03] MEDS: Enoxaparin 30mg Inj SUBQ SCH ×2 (09:08→20:36)
[2017-09-03] MEDS: Levemir Flexpen SUBQ SCH ×2 (09:10→17:51)
--- NOTE | 2017-09-03 11:06 | Pulmonology Progress Note ---
Assessment/Plan Problems: (1) Non-ST elevation (NSTEMI) myocardial infarction (2) Ventricular hypertrophy (3) COPD (chronic obstructive pulmonary disease) (4) Psychosis (5) Hypertension (6) Diabetes Assessment/Plan f/u troponin f/u cardiology recommendations symptomatic treatment f/u psych recommendations respiratory treatment titrate fio2 to sat of 92% Subjective ROS Limited/Unobtainable: No Constitutional: Reports: no symptoms Respiratory: Reports: no symptoms Allergies: Coded Allergies: No Known Allergies (Unverified , 08/31/17) Objective Last 24 Hour Vital Signs Date Time Temp Pulse Resp B/P (MAP) Pulse Ox O2 Delivery O2 Flow Rate FiO2 09/03/17 09:11 151/70 09/03/17 09:07 151/70 09/03/17 09:06 68 151/70 09/03/17 09:06 151/70 09/03/17 09:06 68 151/70 09/03/17 09:00 Room Air 09/03/17 08:00 97.9 68 20 151/70 (97) 97 97.9 09/03/17 08:00 75 70 72 09/03/17 04:00 98.9 60 18 154/79 (104) 95 98.9 09/03/17 04:00 58 09/03/17 00:00 98.8 60 18 136/65 (88) 98 98.8 09/03/17 00:00 60 09/02/17 21:00 98.8 64 18 157/72 (100) 95 98.8 09/02/17 21:00 Room Air 09/02/17 20:00 64 09/02/17 18:28 149/69 09/02/17 18:27 149/69 09/02/17 16:00 97.8 60 20 149/69 (95) 100 97.8 09/02/17 16:00 58 09/02/17 14:44 63 09/02/17 13:26 138/67 09/02/17 13:26 138/67 09/02/17 12:00 98.9 61 20 138/67 (90) 96 98.9 Intake and Output 09/02/17 09/03/17 19:00 07:00 Intake Total 150 ml 800 ml Balance 150 ml 800 ml Intake Oral 150 ml 800 ml # Voids 1 4 General Appearance: WD/WN HEENT: normocephalic, atraumatic Respiratory/Chest: chest wall non-tender, lungs clear Cardiovascular: normal peripheral pulses, normal rate Abdomen: normal bowel sounds, soft, non tender Extremities: no cyanosis Skin: no rash 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 Complete 08/31/17 17:05 Rectum VRE Culture - Final NO VANCOMYCIN RESISTANT ENTEROCOCCUS ... Complete 08/31/17 17:05 Rectum - Final NO CARBAPENEM-RESISTANT ENTEROBACTERI... Complete Current Medications Medications (Trade) Dose Ordered Sig/Alessandra Route PRN Reason Start Time Stop Time Status Last Admin Dose Admin Acetaminophen (Tylenol) 500 mg Q4H PRN ORAL Mild Pain/Temp > 100.5 08/31/17 22:45 09/30/17 22:44 Amlodipine Besylate (Norvasc) 10 mg DAILY ORAL 09/01/17 09:00 10/01/17 08:59 09/03/17 09:06 Aspirin (ASA) 81 mg DAILY ORAL 09/01/17 09:00 10/01/17 08:59 09/03/17 09:06 Benztropine Mesylate (Cogentin) 1 mg BID IM 09/01/17 09:00 10/01/17 08:59 09/03/17 09:10 Clonidine HCl (Catapres Tab) 0.1 mg TID ORAL 09/01/17 09:00 10/01/17 08:59 09/03/17 09:11 Dextrose (Dextrose 50%) 25 ml STAT PRN IV Hypoglycemia 08/31/17 21:15 09/30/17 21:14 Dextrose (Dextrose 50%) 50 ml STAT PRN IV Hypoglycemia 08/31/17 21:15 09/30/17 21:14 09/02/17 07:05 Divalproex Sodium (Depakote) 250 mg EVERY 12 HOURS ORAL 09/01/17 09:00 10/01/17 08:59 09/03/17 09:05 Docusate Sodium (Colace) 250 mg DAILY ORAL 09/01/17 09:00 10/01/17 08:59 09/03/17 09:05 Enoxaparin Sodium (Lovenox) 30 mg Q12HR SUBQ 09/02/17 21:00 10/02/17 20:59 09/03/17 09:08 Gabapentin (Neurontin) 100 mg BID ORAL 09/01/17 09:00 10/01/17 08:59 09/03/17 09:06 Haloperidol (Haldol) 1 mg BID ORAL 09/01/17 09:00 10/01/17 08:59 09/03/17 09:05 Hydralazine HCl (Apresoline) 10 mg Q4H PRN IV SBP>160 09/01/17 01:30 10/01/17 01:29 09/01/17 06:05 Hydralazine HCl (Apresoline) 25 mg TID ORAL 09/01/17 09:00 10/01/17 08:59 09/03/17 09:06 Insulin Aspart (NovoLOG) BEFORE MEALS AND HS SUBQ 08/31/17 22:30 09/30/17 22:29 09/02/17 20:34 Insulin Detemir (Levemir) 15 units BID SUBQ 09/01/17 09:00 10/01/17 08:59 09/03/17 09:10 Lactulose (Cephulac) 10 gm FOUR TIMES A DAY ORAL 09/01/17 09:00 10/01/17 08:59 09/03/17 09:05 Lisinopril (Zestril) 40 mg DAILY ORAL 09/01/17 09:00 10/01/17 08:59 09/03/17 09:07 Magnesium Hydroxide (Mom) 30 ml HSPRN PRN ORAL Constipation 08/31/17 22:45 09/30/17 22:44 Metoprolol Succinate (Toprol XL) 50 mg DAILY ORAL 09/01/17 09:00 10/01/17 08:59 09/03/17 09:06 Multivitamins (Multivitamins) 1 tab DAILY ORAL 09/01/17 09:00 10/01/17 08:59 09/03/17 09:05 Neomycin/ Polymyxin/ Bacitracin (Neosporin) 1 applic DAILY TOPIC 09/01/17 09:00 10/01/17 08:59 09/03/17 09:05 Phenytoin (Dilantin) 100 mg TID ORAL 09/01/17 09:00 10/01/17 08:59 09/03/17 09:06 Donnie Barrios MD Sep 03, 2017 11:05
[2017-09-03 12:00] VITALS: BP 115/69
[2017-09-03 16:00] VITALS: BP 143/76
--- NOTE | 2017-09-03 17:16 | Cardiology Progress Note ---
Assessment/Plan Assessment/Plan chest pain with positive troponin at present time asymptomatic Subjective Subjective The patient is sleeping,m when aroused, denies chest pain or dyspnea Objective Last 24 Hour Vital Signs Date Time Temp Pulse Resp B/P (MAP) Pulse Ox O2 Delivery O2 Flow Rate FiO2 09/03/17 16:00 98.6 58 20 143/76 (98) 96 98.6 09/03/17 15:41 58 09/03/17 13:25 115/69 09/03/17 13:25 115/69 09/03/17 12:00 98.2 63 18 115/69 (84) 98 98.2 09/03/17 11:51 64 09/03/17 09:11 151/70 09/03/17 09:07 151/70 09/03/17 09:06 68 151/70 09/03/17 09:06 151/70 09/03/17 09:06 68 151/70 09/03/17 09:00 Room Air 09/03/17 08:00 97.9 68 20 151/70 (97) 97 97.9 09/03/17 08:00 75 70 72 09/03/17 07:57 67 09/03/17 04:00 98.9 60 18 154/79 (104) 95 98.9 09/03/17 04:00 58 09/03/17 00:00 98.8 60 18 136/65 (88) 98 98.8 09/03/17 00:00 60 09/02/17 21:00 98.8 64 18 157/72 (100) 95 98.8 09/02/17 21:00 Room Air 09/02/17 20:00 64 09/02/17 18:28 149/69 09/02/17 18:27 149/69 General Appearance: no apparent distress EENT: PERRL/EOMI Neck: non-tender Rhythm: NSR Cardiovascular: normal rate Respiratory/Chest: crackles/rales Abdomen: soft Extremities: trace edema Intake and Output 09/02/17 09/03/17 19:00 07:00 Intake Total 150 ml 800 ml Balance 150 ml 800 ml Intake Oral 150 ml 800 ml # Voids 1 4 Lashon Leonard MD Sep 03, 2017 17:16
[2017-09-03 20:00] VITALS: BP 122/69
[2017-09-04] VITALS: BP 141/78
[2017-09-04 04:00] VITALS: BP 139/80
[2017-09-04] MEDS: NovoLOG Insulin Flexpen SUBQ SCH ×3 (06:03→16:30)
[2017-09-04 08:00] VITALS: BP 135/68
[2017-09-04] MEDS: Lactulose 10gm/15ml UDC ORAL SCH ×2 (08:17→12:19)
[2017-09-04] MEDS: Haloperidol 1mg tab ORAL SCH (08:18)
[2017-09-04] MEDS: Docusate 250mg cap ORAL SCH (08:19)
[2017-09-04] MEDS: Aspirin Baby 81mg ORAL SCH (08:19)
[2017-09-04] MEDS: Phenytoin 100mg cap ORAL SCH ×2 (08:19→12:19)
[2017-09-04] MEDS: Neosporin Oint Ud Pkt TOPIC SCH (08:20)
[2017-09-04] MEDS: Enoxaparin 30mg Inj SUBQ SCH (08:21)
[2017-09-04] MEDS: Levemir Flexpen SUBQ SCH (08:29)
[2017-09-04] MEDS: Lisinopril 10mg tab ORAL SCH (08:30)
[2017-09-04] MEDS: Metoprolol Succinate XL 50mg tab ORAL SCH (08:32)
[2017-09-04] MEDS: HydrALAZINE 25mg tab ORAL SCH ×2 (08:33→12:21)
--- NOTE | 2017-09-04 11:27 | General Progress Note ---
Assessment/Plan Problem List: (1) Minor head injury ICD Codes: S09.90XA - Unspecified injury of head, initial encounter SNOMED: 726998626 Qualifiers: Qualified Codes: S09.90XD - Unspecified injury of head, subsequent encounter (2) Laceration of face ICD Codes: S01.81XA - Laceration without foreign body of other part of head, initial encounter SNOMED: 825514578 Qualifiers: Qualified Codes: S01.81XD - Laceration without foreign body of other part of head, subsequent encounter (3) Hyperglycemia ICD Codes: R73.9 - Hyperglycemia, unspecified SNOMED: 13534282 (4) Intractable vomiting ICD Codes: R11.10 - Vomiting, unspecified SNOMED: 023579396 Qualifiers: (5) Hypertension ICD Codes: I10 - Essential (primary) hypertension SNOMED: 62163696 Qualifiers: Qualified Codes: I10 - Essential (primary) hypertension Status: stable, progressing Assessment/Plan late entry improved w/ medical therapy follow specialists recommendations monitor symptoms supportive care see orders; Subjective Date patient seen: Sep 02, 2017 Time patient seen: 09:00 ROS Limited/Unobtainable: Yes Allergies: Coded Allergies: No Known Allergies (Unverified , 08/31/17) Subjective no new issues; Objective Last 24 Hour Vital Signs Date Time Temp Pulse Resp B/P (MAP) Pulse Ox O2 Delivery O2 Flow Rate FiO2 09/04/17 09:00 Room Air 09/04/17 08:33 135/68 09/04/17 08:33 135/68 09/04/17 08:32 58 135/68 09/04/17 08:32 58 135/68 09/04/17 08:30 135/68 09/04/17 08:00 98.4 62 18 135/68 (90) 96 98.4 09/04/17 08:00 59 62 68 09/04/17 08:00 61 09/04/17 04:00 97.6 72 18 139/80 (99) 96 97.6 09/04/17 04:00 69 09/04/17 00:00 58 09/04/17 00:00 97.5 57 18 141/78 (99) 98 97.5 09/03/17 21:00 Room Air 09/03/17 20:00 98.0 62 19 122/69 (86) 97 98.0 09/03/17 20:00 60 09/03/17 17:48 143/76 09/03/17 17:48 143/76 09/03/17 16:00 98.6 58 20 143/76 (98) 96 98.6 09/03/17 15:41 58 09/03/17 13:25 115/69 09/03/17 13:25 115/69 09/03/17 12:00 98.2 63 18 115/69 (84) 98 98.2 09/03/17 11:51 64 Intake and Output 09/03/17 09/04/17 19:00 07:00 Intake Total 260 ml Balance 260 ml Intake Oral 260 ml # Voids 1 1 Height (Feet): 5 Height (Inches): 10.00 Weight (Pounds): 139 General Appearance: WD/WN EENT: PERRL/EOMI Neck: non-tender Cardiovascular: normal rate Respiratory/Chest: normal breath sounds Abdomen: soft Pelvis: no masses Genitourinary/Rectal: other Extremities: other Edema: other Renzo Denis M.D. Sep 04, 2017 11:27
--- NOTE | 2017-09-04 11:33 | General Progress Note ---
Assessment/Plan Problem List: (1) Minor head injury ICD Codes: S09.90XA - Unspecified injury of head, initial encounter SNOMED: 581813960 Qualifiers: Qualified Codes: S09.90XD - Unspecified injury of head, subsequent encounter (2) Laceration of face ICD Codes: S01.81XA - Laceration without foreign body of other part of head, initial encounter SNOMED: 151035624 Qualifiers: Qualified Codes: S01.81XD - Laceration without foreign body of other part of head, subsequent encounter (3) Hyperglycemia ICD Codes: R73.9 - Hyperglycemia, unspecified SNOMED: 28860193 (4) Intractable vomiting ICD Codes: R11.10 - Vomiting, unspecified SNOMED: 537128073 Qualifiers: (5) Hypertension ICD Codes: I10 - Essential (primary) hypertension SNOMED: 91691127 Qualifiers: Qualified Codes: I10 - Essential (primary) hypertension Status: stable, tolerating diet Assessment/Plan late entry improved w/ medical therapy monitor vitals follow specialists recommendations monitor symptoms supportive care see orders; Subjective Date patient seen: Sep 03, 2017 Time patient seen: 11:32 ROS Limited/Unobtainable: Yes Allergies: Coded Allergies: No Known Allergies (Unverified , 08/31/17) All Systems: reviewed and negative except above Subjective no new issues; Objective Last 24 Hour Vital Signs Date Time Temp Pulse Resp B/P (MAP) Pulse Ox O2 Delivery O2 Flow Rate FiO2 09/04/17 09:00 Room Air 09/04/17 08:33 135/68 09/04/17 08:33 135/68 09/04/17 08:32 58 135/68 09/04/17 08:32 58 135/68 09/04/17 08:30 135/68 09/04/17 08:00 98.4 62 18 135/68 (90) 96 98.4 09/04/17 08:00 59 62 68 09/04/17 08:00 61 09/04/17 04:00 97.6 72 18 139/80 (99) 96 97.6 09/04/17 04:00 69 09/04/17 00:00 58 09/04/17 00:00 97.5 57 18 141/78 (99) 98 97.5 09/03/17 21:00 Room Air 09/03/17 20:00 98.0 62 19 122/69 (86) 97 98.0 09/03/17 20:00 60 09/03/17 17:48 143/76 09/03/17 17:48 143/76 09/03/17 16:00 98.6 58 20 143/76 (98) 96 98.6 09/03/17 15:41 58 09/03/17 13:25 115/69 09/03/17 13:25 115/69 09/03/17 12:00 98.2 63 18 115/69 (84) 98 98.2 09/03/17 11:51 64 Intake and Output 09/03/17 09/04/17 19:00 07:00 Intake Total 260 ml Balance 260 ml Intake Oral 260 ml # Voids 1 1 Height (Feet): 5 Height (Inches): 10.00 Weight (Pounds): 139 General Appearance: no apparent distress EENT: normal ENT inspection Neck: supple Cardiovascular: normal rate Respiratory/Chest: lungs clear Abdomen: non tender Pelvis: other Genitourinary/Rectal: other Extremities: other Edema: trace edema Neurologic: alert, responsive Renzo Denis M.D. Sep 04, 2017 11:33
--- NOTE | 2017-09-04 11:35 | Discharge Summary ---
Discharge Summary Hospital Course Date of Admission Aug 31, 2017 at 15:36 Date of Discharge 09/04/17 Admitting Diagnosis HYPERGLYCEMIA,INTRACTABLE VOMITING HPI Romero Madera is a 52 year old male who was admitted on Aug 31, 2017 at 15:36 for Hyperglycemia,Interactable Vomiting Consultations cardiology psychiatry pulmonology Procedures none Hospital Course patient was admitted and treated medically; patient's vitals and laboratory parameters improved and patient to be dc to snf for continued care; Discharge Condition Upon Discharge: stable Discharge Disposition Patient was discharged to snf Discharge Diagnoses: (1) Hyperglycemia (2) COPD (chronic obstructive pulmonary disease) (3) Psychosis (4) Ventricular hypertrophy (5) Non-ST elevation (NSTEMI) myocardial infarction (6) Diabetes (7) Minor head injury (8) Laceration of face (9) Hypertension (10) Intractable vomiting Renzo Denis M.D. Sep 04, 2017 11:35
[2017-09-04] MEDS ORDERED: HYDRALAZINE HCL25 M1 ORAL (11:38)
[2017-09-04 12:00] VITALS: BP 150/63
[2017-09-04 16:00] VITALS: BP 150/75
--- NOTE | 2017-09-04 20:00 | Cardiology Progress Note ---
Assessment/Plan Assessment/Plan chest pain with positive troponin at present time asymptomatic Subjective Subjective The patient is sleeping, when aroused, denies chest pain or dyspnea Objective Last 24 Hour Vital Signs Date Time Temp Pulse Resp B/P (MAP) Pulse Ox O2 Delivery O2 Flow Rate FiO2 09/04/17 16:00 98.4 18 150/75 (100) 96 98.4 09/04/17 12:21 150/63 09/04/17 12:20 150/63 09/04/17 12:00 98.2 18 150/63 (92) 96 98.2 09/04/17 09:00 Room Air 09/04/17 08:33 135/68 09/04/17 08:33 135/68 09/04/17 08:32 58 135/68 09/04/17 08:32 58 135/68 09/04/17 08:30 135/68 09/04/17 08:00 98.4 62 18 135/68 (90) 96 98.4 09/04/17 08:00 59 62 68 09/04/17 08:00 61 09/04/17 04:00 97.6 72 18 139/80 (99) 96 97.6 09/04/17 04:00 69 09/04/17 00:00 58 09/04/17 00:00 97.5 57 18 141/78 (99) 98 97.5 09/03/17 21:00 Room Air General Appearance: no apparent distress EENT: PERRL/EOMI Neck: supple Rhythm: NSR Cardiovascular: regular rhythm Respiratory/Chest: lungs clear Abdomen: non tender Extremities: non-tender Intake and Output 09/03/17 09/04/17 19:00 07:00 Intake Total 260 ml Balance 260 ml Intake Oral 260 ml # Voids 1 1 Lashon Leonard MD Sep 04, 2017 20:00
== END 2017-09-04 17:10 | DRG 637 ==
LOC: EDBD 09:00 → EMR 09:48 → 2E 15:36 → EDBEDREQ 16:28 → 2E 09-01 00:04
DX: E11.65 Type 2 diabetes mellitus with hyperglycemia (principal); I21.4 Non-ST elevation (NSTEMI) myocardial infarction; S06.0X9A Concussion with loss of consciousness of unspecified duration, initial encounter; I16.0 Hypertensive urgency; S01.01XA Laceration without foreign body of scalp, initial encounter; F29 Unspecified psychosis not due to a substance or known physiological condition; S01.81XA Laceration without foreign body of other part of head, initial encounter; W19.XXXA Unspecified fall, initial encounter; Y92.121 Bathroom in nursing home as the place of occurrence of the external cause; J44.9 Chronic obstructive pulmonary disease, unspecified; I51.7 Cardiomegaly; F25.9 Schizoaffective disorder, unspecified; E11.22 Type 2 diabetes mellitus with diabetic chronic kidney disease; I12.9 Hypertensive chronic kidney disease with stage 1 through stage 4 chronic kidney disease, or unspecified chronic kidney disease; N18.9 Chronic kidney disease, unspecified; G40.909 Epilepsy, unspecified, not intractable, without status epilepticus; R13.10 Dysphagia, unspecified; E78.5 Hyperlipidemia, unspecified; R26.89 Other abnormalities of gait and mobility
CPT/HCPCS: 36415; 70450; 74018; 80053; 80164; 81003; 82550; 82553; 82962; 83735; 83880; 84443; 84484; 85025; 85610; 85730; 87081; 93005; 93306; 93880; 93970; 99285; J1815; S5561

== ENCOUNTER 2019-04-20 20:02 | Inpatient (IN) | payer MEDICARE, MEDICAID ==
[~2019-04-20] VITALS: Ht 177.8 cm; Wt 83.9 kg
[~2019-04-20 20:02] MED LIST: AMLODIPINE BESY10 MG ORAL; ASPIR 8181 MG ORAL; BENZTROPINE ME0.5 MG PO; CATAPRES0.1 MG ORAL; COLACE100 MG ORAL; CRANBERRY450 M3 PO; DEPAKOTE ER250 MG ORAL; DEPAKOTE250 MG PO; DOCUSATE SODIU250 MG ORAL; HALOPERIDOL1 MG ORAL; HYDRALAZINE HCL25 M1 ORAL; LACTULOSE20 GM/301 ORAL; LEVEMIR FL100 UNIT/1 SUBQ; LISINOPRIL40 MG ORAL; METOPROLOL TART50 M1 ORAL; MILK OF MA2400 MG/10 ORAL; MULTIVITAMINS1 EAC2 ORAL; NEURONTIN100 MG ORAL; PHENYTOIN SODI100 MG ORAL; TYLENOL EXTRA500 MG ORAL; ZESTRIL20 MG ORAL
--- NOTE | 2019-04-20 20:15 | NUR ---
ED Nurse Note: Recieved pt BIBA from SNF facility with c/o mechanical fall, pt had fall about 4pm, denies k.o or any injuries, pt is awake, alert and oriented x 2, disoriented to date and time, pt is calm and cooperative, placed on cardiac monitoring and seizure precautions with side rails with padded rails, pt has ACD intact in left chest, denies pain, will continue to closely monitor and preapre for admission.
[2019-04-20] MEDS ORDERED: ATORVASTATIN CA40 MG ORAL (20:30)
[2019-04-20] MEDS ORDERED: COLACE100 MG ORAL (20:30)
[2019-04-20] MEDS ORDERED: FLEET ENEMA133 ML RECTAL (20:31)
[2019-04-20] MEDS ORDERED: NORVASC10 MG ORAL (20:32)
[2019-04-20] MEDS ORDERED: ZYPREXA2.5 MG ORAL (20:33)
[2019-04-20] MEDS ORDERED: TERAZOSIN HCL1 MG ORAL (20:34)
--- NOTE | 2019-04-20 20:34 | Diagnostic Imaging Report ---
Exam: CT head without contrast History: Syncope Comparison: 08/31/2017 Technique more: Axial noncontrast head CT. CTDI is 53.4 mGy and DLP is 1066.4 mGy-cm. Technique more: One or more of the following dose reduction techniques were used: automated exposure control, adjustment of the mA and/or kV according to patient size, use of iterative reconstruction technique. Findings: Prominence of the ventricles and extra-axial CSF spaces consistent with involutional changes. No acute intracranial hemorrhage mass-effect or edema. Paranasal sinuses, mastoid air cells are normal. Impression: 1. No acute intracranial hemorrhage mass-effect or edema.
--- NOTE | 2019-04-20 20:47 | Diagnostic Imaging Report ---
Exam: Chest 1 view History: Syncope Findings: Trachea is midline mild linear scarring at the right lateral lung. Left chest wall cardiac pacer with single lead extending into the right heart. Mild bilateral shoulder degenerative changes. Lungs are otherwise. Clear costophrenic negative. Impression: 1. Linear atelectasis/scarring at the lateral right lung base.
[2019-04-20 21:22] LABS: ANION GAP 7 mmol/L (5-15); BASOPHILS % (AUTO) 1.9 % (0.0-2.0); BLOOD UREA NITROGEN 41 mg/dL (7-18); CALCIUM 8.4 MG/DL (8.5-10.1); CARBON DIOXIDE 27 MMOL/L (21-32); CHLORIDE 107 MMOL/L (98-107); CREATININE 2.2 MG/DL (0.55-1.30); EOSINOPHILS % (AUTO) 2.2 % (0.0-3.0); HEMATOCRIT 32.7 % (42.0-52.0); HEMOGLOBIN 10.4 G/DL (14.2-18.0); LYMPHOCYTES % (AUTO) 22.2 % (20.0-45.0); MEAN CORPUSCULAR VOLUME 88 FL (80-99); MONOCYTES % (AUTO) 8.9 % (1.0-10.0); NEUTROPHILS % (AUTO) 64.9 % (45.0-75.0); PLATELET COUNT 209 K/UL (150-450); RED BLOOD COUNT 3.71 M/UL (4.70-6.10); RED CELL DISTRIBUTION WIDTH 12.6 % (11.6-14.8); SODIUM 141 MMOL/L (136-145)
[2019-04-20 21:25] VITALS: BP 184/75
[2019-04-20 21:27] LABS: INR 0.9 (0.9-1.1)
[2019-04-20 21:29] LABS: ALANINE AMINOTRANSFERASE 67 U/L (12-78); ALBUMIN 3.3 G/DL (3.4-5.0); ALBUMIN/GLOBULIN RATIO 0.9 (1.0-2.7); ALKALINE PHOSPHATASE 243 U/L (46-116); ASPARTATE AMINO TRANSFERASE 37 U/L (15-37); BILIRUBIN,TOTAL 0.1 MG/DL (0.2-1.0)
--- NOTE | 2019-04-20 21:36 | Emergency Room Report ---
History of Present Illness General Chief Complaint: Multiple Trauma/Fall Source: Patient, EMS Present Illness HPI Patient apparently fell and hit his head. Patient is taking anticoagulation ( according to med recon - only aspirin). Patient has a history of Alzheimer's dementia and cannot remember what happened. Patient denies any pain at this time. 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 Reviewed Nursing Documentation: PMH: Agreed; PSxH: Agreed Nursing Documentation-PMH Hx Cardiac Problems: Yes - HTN, High Cholesterol, Hypertensive Chrisis, cardiomegaly Hx Hypertension: Yes - anemia Hx Pacemaker: Yes - ICD Hx COPD: Yes Hx Diabetes: Yes - CKD STAGE 3 Hx Cancer: No Hx Gastrointestinal Problems: Yes - dysphagia, Pancreatitis,GERD,chronic pancreatitis History Of Psychiatric Problem: Yes - schizoaffective disorder,depression, psychosis Hx Neurological Problems: Yes - Seizures, Epilepsy, Encephalopathy,cataract 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 Review of Systems All Other Systems: limited Physical Exam Vital Signs Date Time Temp Pulse Resp B/P (MAP) Pulse Ox O2 Delivery O2 Flow Rate FiO2 04/20/19 20:04 98.1 58 20 182/71 (108) 96 Room Air Sp02 EP Interpretation: reviewed, normal General Appearance: well appearing, no apparent distress, non-toxic, thin, other - Poor recent memory Head: normocephalic, other - Denies pain Eyes: bilateral eye normal inspection, bilateral eye PERRL, bilateral eye EOMI ENT: moist mucus membranes - No lingual trauma Neck: full range of motion, supple, no bony tend Respiratory: chest non-tender, lungs clear, normal breath sounds Cardiovascular #1: regular rate, rhythm, no edema Cardiovascular #2: 2+ radial (R) Gastrointestinal: normal inspection, normal bowel sounds, non tender, no mass, non-distended Genitourinary: no CVA tenderness Musculoskeletal: back normal, normal range of motion, moves extm spontaneously Neurologic: alert, motor strength/tone normal, 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 as tested, oriented - X2, sensory intact, cerebellar normal, speech normal Psychiatric: mood/affect normal - Poor recent memory Skin: no rash, warm/dry, other - Slightly pale Medical Decision Making Diagnostic Impression: Primary Impression: Syncope Qualified Codes: R55 - Syncope and collapse Additional Impressions: Head trauma Qualified Codes: S09.90XA - Unspecified injury of head, initial encounter Elevated troponin Acute on chronic renal failure Qualified Codes: N17.9 - Acute kidney failure, unspecified; N18.3 - Chronic kidney disease, stage 3 (moderate) Subtherapeutic anti-seizure levels Hypertension Qualified Codes: I10 - Essential (primary) hypertension ER Course Patient presents with head trauma allegedly on anticoagulation. Patient cannot give history due to Alzheimer's disease. Differential includes syncope, brain bleed, contusion, concussion, electrolyte imbalance amongst others. Evaluation with EKG, CT the head, chest x-ray and labs. Patient placed on a environmental monitoring technician for the possibility of syncope. EKG with LVH and J-point elevation. No reciprocal changes. Chest x-ray atelectasis bases. Normal white count. CMP with elevated BUN and creatinine above previous levels. Glucose 212. Called with minimally elevated troponin. EKG without injury. Left ventricular hypertrophy with ST elevation consistent with that versus pericarditis. Compare with 08/2017 EKG - ST/J point elevation is knew. BUN and creatinine more elevated than in the past. Late addition of Dilantin and valproic acid reveal subtherapeutic levels. Admitted telemetry Dr. Wasserman. Laboratory Tests Test 04/20/19 20:40 White Blood Count 7.0 K/UL (4.8-10.8) Red Blood Count 3.71 M/UL (4.70-6.10) L Hemoglobin 10.4 G/DL (14.2-18.0) L Hematocrit 32.7 % (42.0-52.0) L Mean Corpuscular Volume 88 FL (80-99) Mean Corpuscular Hemoglobin 28.2 PG (27.0-31.0) Mean Corpuscular Hemoglobin Concent 31.9 G/DL (32.0-36.0) L Red Cell Distribution Width 12.6 % (11.6-14.8) Platelet Count 209 K/UL (150-450) Mean Platelet Volume 8.0 FL (6.5-10.1) Neutrophils (%) (Auto) 64.9 % (45.0-75.0) Lymphocytes (%) (Auto) 22.2 % (20.0-45.0) Monocytes (%) (Auto) 8.9 % (1.0-10.0) Eosinophils (%) (Auto) 2.2 % (0.0-3.0) Basophils (%) (Auto) 1.9 % (0.0-2.0) Prothrombin Time 9.9 SEC (9.30-11.50) Prothrombin Time INR 0.9 (0.9-1.1) Sodium Level 141 MMOL/L (136-145) Potassium Level 5.0 MMOL/L (3.5-5.1) Chloride Level 107 MMOL/L (98-107) Carbon Dioxide Level 27 MMOL/L (21-32) Anion Gap 7 mmol/L (5-15) Blood Urea Nitrogen 41 mg/dL (7-18) H Creatinine 2.2 MG/DL (0.55-1.30) H Estimate Glomerular Filtration Rate 37.8 mL/min (>60) Glucose Level 212 MG/DL (74-106) H Calcium Level 8.4 MG/DL (8.5-10.1) L Total Bilirubin 0.1 MG/DL (0.2-1.0) L Aspartate Amino Transferase (AST) 37 U/L (15-37) Alanine Aminotransferase (ALT) 67 U/L (12-78) Alkaline Phosphatase 243 U/L (46-116) H Troponin I 0.075 ng/mL (0.000-0.056) Total Protein 7.1 G/DL (6.4-8.2) Albumin 3.3 G/DL (3.4-5.0) L Globulin 3.8 g/dL Albumin/Globulin Ratio 0.9 (1.0-2.7) L Phenytoin (Dilantin) Level 2.2 ug/mL (10-20) L Valproic Acid Level 31 MCG/ML (50-100) L EKG Diagnostic Results Rate: normal Rhythm: NSR ST Segments: other - J-point elevation with AK depression and ST inversions laterally ASA given to the pt in ED: Yes Rhythm Strip Diag. Results EP Interpretation: yes Rhythm: NSR, no PVC's, no ectopy Chest X-Ray Diagnostic Results Chest X-Ray Diagnostic Results : Chest X-Ray Ordered: Yes # of Views/Limited/Complete: 1 View Indication: Other EP Interpretation: Yes Interpretation: no consolidation, no effusion, no pneumothorax, other - Pacemaker Impression: Other Electronically Signed by: Electronically signed by Abebe Mina MD CT/MRI/US Diagnostic Results CT/MRI/US Diagnostic Results : Imaging Test Ordered: Head Impression No bleed Last Vital Signs Date Time Temp Pulse Resp B/P (MAP) Pulse Ox O2 Delivery O2 Flow Rate FiO2 04/21/19 00:30 95 205/100 04/20/19 22:25 98.1 17 99 Room Air Status: improved Disposition: ADMITTED INPATIENT Condition: Serious Referrals: David Wasserman MD (PCP) Abebe Mina MD Apr 20, 2019 21:36
[2019-04-20] MEDS ORDERED: Aspirin Baby 81mg ORAL ONE (21:45)
[2019-04-20 22:25] VITALS: BP 149/66
--- NOTE | 2019-04-20 22:35 | NUR ---
ED Nurse Note: PT CONTINUES TO REST QUIETLY IN BED, NO CHAGNES OR INCREASED DISTRESS, PT BEING ADMITTED TO FLOOR BED, REPORT CALLED TO NURSE, ALL FORMS AND SWABS COMPLETED, PT DENEIS CP OR ANY PAIN, NO SOB OR LABORED BREAHTING, HAS ALL BELONGINGS, PT BEING TAKEN TO FLOOR UNIT VIA GURNEY WITH ER-TECH AND FIONA CEE DURING PT TRANSPORT TO FLOOR BED.
--- NOTE | 2019-04-20 23:45 | NUR ---
NURSE NOTES: Received report from Ange Keller DIRECTOR OF PROMOTIONS. Pt BP 205/100, Hadadz ordered Norvasc 5mg now and QD; admin as ordered. Pt denies pain at this time, no signs or symptoms of distress noted. Will start plan of care and close monitoring.
[2019-04-21] VITALS (7 sets, daily range): BP systolic 146–205; BP diastolic 78–100
--- NOTE | 2019-04-21 07:18 | NUR ---
NURSE NOTES: Received report from Yahaira STAUFFER. Pt in bed awake and eating breakfast. IV site in right wrist 20G SL patent and asymptomatic. Denied pain. On room air. Bed in lowest position and locked. Side railx2 up and padded for safety and seizure precautions. New ICD placement site intact and patent. Will continue to plan of care.
[2019-04-21 07:20] LABS: BASOPHILS % (AUTO) 1.1 % (0.0-2.0); EOSINOPHILS % (AUTO) 1.8 % (0.0-3.0); HEMATOCRIT 30.2 % (42.0-52.0); HEMOGLOBIN 10.1 G/DL (14.2-18.0); LYMPHOCYTES % (AUTO) 21.6 % (20.0-45.0); MEAN CORPUSCULAR VOLUME 87 FL (80-99); MONOCYTES % (AUTO) 9.1 % (1.0-10.0); NEUTROPHILS % (AUTO) 66.4 % (45.0-75.0); PLATELET COUNT 191 K/UL (150-450); RED BLOOD COUNT 3.49 M/UL (4.70-6.10); RED CELL DISTRIBUTION WIDTH 11.2 % (11.6-14.8); WHITE BLOOD COUNT 6.9 K/UL (4.8-10.8)
--- NOTE | 2019-04-21 07:22 | NUR ---
HAND-OFF: Report given to Darrin Hammond RN. Pt in stable condition.
[2019-04-21 07:40] LABS: ALANINE AMINOTRANSFERASE 46 U/L (12-78); ALBUMIN/GLOBULIN RATIO 0.9 (1.0-2.7); ALKALINE PHOSPHATASE 225 U/L (46-116); ANION GAP 10 mmol/L (5-15); ASPARTATE AMINO TRANSFERASE 23 U/L (15-37); BILIRUBIN,TOTAL 0.1 MG/DL (0.2-1.0); BLOOD UREA NITROGEN 33 mg/dL (7-18); CALCIUM 8.5 MG/DL (8.5-10.1); CARBON DIOXIDE 26 MMOL/L (21-32); CHLORIDE 110 MMOL/L (98-107); CREATININE 1.7 MG/DL (0.55-1.30); POTASSIUM 4.3 MMOL/L (3.5-5.1); SODIUM 145 MMOL/L (136-145)
[2019-04-21] MEDS ORDERED: TYLENOL325 MG ORAL (08:15)
[2019-04-21] MEDS ORDERED: FLEET ENEMA133 ML RECTAL (08:15)
[2019-04-21] MEDS ORDERED: NOVOLOG100 UNITS1 (08:15)
[2019-04-21] MEDS ORDERED: ACETAMINOPHEN500 MG ORAL (08:15)
[2019-04-21] MEDS ORDERED: FISH OIL CAP1000 MG ORAL (08:15)
[2019-04-21] MEDS ORDERED: DULCOLAX10 MG RC (08:15)
--- NOTE | 2019-04-21 08:50 | NUR ---
NURSE NOTES: senior engineering technician notified RN to check the patient regarding the changes on EKG with ST elevation on EKG. The patient resting in bed and denied chest pain and denied SOB. 12 leads EKG done and paged Dr. Lopez and awaiting for reply.
--- NOTE | 2019-04-21 09:02 | NUR ---
NURSE NOTES: Made Dr. Lopez aware of changes on EKG. CK and UA ordered.
--- NOTE | 2019-04-21 09:10 | NUR ---
NURSE NOTES: Made Dr. Lopez aware of elevated trop-i
[2019-04-21] MEDS ORDERED: Acetaminophen 500mg (ES) tab ORAL PRN ×2 (09:30)
[2019-04-21] MEDS ORDERED: Metoprolol Tartrate 100mg tab ORAL SCH (09:30)
[2019-04-21] MEDS ORDERED: Docusate 100mg cap ORAL SCH (09:30)
[2019-04-21] MEDS ORDERED: Milk of Magnesia 30ml Ud ORAL PRN (09:30)
[2019-04-21] MEDS ORDERED: HydrALAZINE 50mg tab ORAL SCH (09:30)
[2019-04-21] MEDS ORDERED: Fleet's Enema 133ml RECTAL PRN (09:30)
[2019-04-21 09:36] LABS: CREATINE KINASE 95 U/L (26-308)
[2019-04-21] MEDS: Aspirin EC 81mg tab ORAL SCH (10:11)
[2019-04-21] MEDS: Depakote 500mg tab ORAL SCH ×2 (10:12→18:12)
[2019-04-21] MEDS: Benztropine 1mg tab ORAL SCH (10:12)
[2019-04-21] MEDS: Phenytoin 100mg cap ORAL SCH ×3 (10:13→18:15)
[2019-04-21] MEDS: Levemir Flexpen SUBQ SCH (10:22)
[2019-04-21 11:21] LABS: FERRITIN 45 NG/ML (8-388)
[2019-04-21 11:35] LABS: % IRON SATURATION 33 % (15-50); IRON 53 ug/dL (50-175); TOTAL IRON BINDING CAPACITY 160 ug/dL (250-450)
[2019-04-21] MEDS ORDERED: 1/2 NS 1000ml IV ONE (12:01)
[2019-04-21] MEDS: NovoLOG Insulin Flexpen SUBQ SCH ×3 (12:19→21:39)
[2019-04-21] MEDS ORDERED: cloNIDine 0.2mg Tab ORAL PRN (12:33)
[2019-04-21] MEDS: HydrALAZINE 50mg tab ORAL SCH ×2 (14:22→21:32)
--- NOTE | 2019-04-21 16:06 | Consultation ---
Consult Note Consult Note I was asked to evaluate the patient at the request of Dr. Wasserman for renal failure Patient came to emergency room last night complaining of multiple trauma and fall. He apparently fell and hit his head. Patient is a poor historian. Viewing the old record on August 2017 patient has history of diabetes mellitus COPD psychosis non-STEMI hypertension and periodic vomiting pancreatitis and seizure disorder also gastroesophageal reflux disease This admission his admitted for syncope head trauma elevated troponin and acute renal failure patient also has history of seizure disorder and has subtherapeutic seizure medication levels was also hypertensive in the emergency room Patient interviewed but no meaningful history could be obtained from him Patient examined Data reviewed . Assessment/Plan Acute on chronic renal failure Dehydration Anemia of chronic disease since iron panel B12 and folate are normal Stable syncope Elevated troponin Diabetes mellitus Systemic hypertension History of psychiatric disease Plan Adjust blood pressure medication Adjust antiseizure medication Slow hydration Monitor renal parameters Continue per consultants Per orders Jeb Hale MD Apr 21, 2019 16:06
[2019-04-21] MEDS: Nitroglycerin Patch 0.4mg TDERMAL SCH (17:49)
[2019-04-21] MEDS: Tamsulosin 0.4mg cap ORAL SCH (18:12)
[2019-04-21] MEDS: Docusate 100mg cap ORAL SCH (18:12)
--- NOTE | 2019-04-21 18:35 | Cardiology Progress Note ---
Assessment/Plan Assessment/Plan The patient is seen and examined, full consult note is dictated. Objective Last 24 Hour Vital Signs Date Time Temp Pulse Resp B/P (MAP) Pulse Ox O2 Delivery O2 Flow Rate FiO2 04/21/19 18:12 54 158/78 04/21/19 17:49 158/78 04/21/19 16:00 54 04/21/19 16:00 98.2 55 19 158/78 (104) 97 04/21/19 14:22 154/81 04/21/19 12:00 97.2 65 19 154/81 (105) 96 04/21/19 12:00 63 04/21/19 10:12 96 186/88 04/21/19 10:12 186/83 04/21/19 09:59 61 154/96 04/21/19 09:00 Room Air 04/21/19 08:00 66 04/21/19 08:00 97.7 66 20 186/83 (117) 97 04/21/19 04:00 98.2 79 18 154/96 (115) 98 04/21/19 04:00 61 04/21/19 00:40 97.3 89 17 146/89 (108) 98 04/21/19 00:30 95 205/100 04/21/19 00:16 Room Air 04/21/19 00:00 65 04/21/19 00:00 98.3 95 17 205/100 (135) 98 04/20/19 22:35 98.1 61 17 149/66 99 Room Air 04/20/19 22:25 98.1 61 17 149/66 99 Room Air 04/20/19 21:25 98.1 62 19 184/75 99 Room Air 04/20/19 20:15 58 20 Room Air 04/20/19 20:04 98.1 58 20 182/71 (108) 96 Room Air Intake and Output 04/20/19 04/21/19 19:00 07:00 Intake Total 400 ml Balance 400 ml Intake Oral 400 ml # Voids 2 Laboratory Tests Test 04/20/19 20:40 04/21/19 06:05 White Blood Count 7.0 K/UL (4.8-10.8) 6.9 K/UL (4.8-10.8) Red Blood Count 3.71 M/UL (4.70-6.10) L 3.49 M/UL (4.70-6.10) L Hemoglobin 10.4 G/DL (14.2-18.0) L 10.1 G/DL (14.2-18.0) L Hematocrit 32.7 % (42.0-52.0) L 30.2 % (42.0-52.0) L Mean Corpuscular Volume 88 FL (80-99) 87 FL (80-99) Mean Corpuscular Hemoglobin 28.2 PG (27.0-31.0) 29.0 PG (27.0-31.0) Mean Corpuscular Hemoglobin Concent 31.9 G/DL (32.0-36.0) L 33.5 G/DL (32.0-36.0) Red Cell Distribution Width 12.6 % (11.6-14.8) 11.2 % (11.6-14.8) L Platelet Count 209 K/UL (150-450) 191 K/UL (150-450) Mean Platelet Volume 8.0 FL (6.5-10.1) 6.6 FL (6.5-10.1) Neutrophils (%) (Auto) 64.9 % (45.0-75.0) 66.4 % (45.0-75.0) Lymphocytes (%) (Auto) 22.2 % (20.0-45.0) 21.6 % (20.0-45.0) Monocytes (%) (Auto) 8.9 % (1.0-10.0) 9.1 % (1.0-10.0) Eosinophils (%) (Auto) 2.2 % (0.0-3.0) 1.8 % (0.0-3.0) Basophils (%) (Auto) 1.9 % (0.0-2.0) 1.1 % (0.0-2.0) Prothrombin Time 9.9 SEC (9.30-11.50) Prothromb Time International Ratio 0.9 (0.9-1.1) Sodium Level 141 MMOL/L (136-145) 145 MMOL/L (136-145) Potassium Level 5.0 MMOL/L (3.5-5.1) 4.3 MMOL/L (3.5-5.1) Chloride Level 107 MMOL/L (98-107) 110 MMOL/L (98-107) H Carbon Dioxide Level 27 MMOL/L (21-32) 26 MMOL/L (21-32) Anion Gap 7 mmol/L (5-15) 10 mmol/L (5-15) Blood Urea Nitrogen 41 mg/dL (7-18) H 33 mg/dL (7-18) H Creatinine 2.2 MG/DL (0.55-1.30) H 1.7 MG/DL (0.55-1.30) H Estimat Glomerular Filtration Rate 37.8 mL/min (>60) 51.0 mL/min (>60) Glucose Level 212 MG/DL (74-106) H 163 MG/DL (74-106) H Calcium Level 8.4 MG/DL (8.5-10.1) L 8.5 MG/DL (8.5-10.1) Total Bilirubin 0.1 MG/DL (0.2-1.0) L 0.1 MG/DL (0.2-1.0) L Aspartate Amino Transf (AST/SGOT) 37 U/L (15-37) 23 U/L (15-37) Alanine Aminotransferase (ALT/SGPT) 67 U/L (12-78) 46 U/L (12-78) Alkaline Phosphatase 243 U/L (46-116) H 225 U/L (46-116) H Troponin I 0.075 ng/mL (0.000-0.056) 0.108 ng/mL (0.000-0.056) Total Protein 7.1 G/DL (6.4-8.2) 6.4 G/DL (6.4-8.2) Albumin 3.3 G/DL (3.4-5.0) L 3.0 G/DL (3.4-5.0) L Globulin 3.8 g/dL 3.4 g/dL Albumin/Globulin Ratio 0.9 (1.0-2.7) L 0.9 (1.0-2.7) L Phenytoin (Dilantin) Level 2.2 ug/mL (10-20) L Valproic Acid (Depakene) Level 31 MCG/ML (50-100) L Iron Level 53 ug/dL (50-175) Total Iron Binding Capacity 160 ug/dL (250-450) L Percent Iron Saturation 33 % (15-50) Unsaturated Iron Binding 107 ug/dL (112-346) L Ferritin 45 NG/ML (8-388) Total Creatine Kinase 95 U/L (26-308) Vitamin B12 Level 1174 PG/ML (193-986) H Folate 11.9 NG/ML (8.6-58.9) Microbiology Date/Time Source Procedure Growth Status 04/20/19 22:00 Rectum Received Enrique Lopez MD Apr 21, 2019 18:35
--- NOTE | 2019-04-21 19:10 | NUR ---
HAND-OFF: Report given to Maxime STAUFFER. Pt remains stable.
--- NOTE | 2019-04-21 19:40 | NUR ---
NURSE NOTES: Received report from Darrin Hammond RN. Pt in stable condition, VS wnl. Will continue to monitor closely.
[2019-04-21] MEDS: Doxazosin 1mg Tab ORAL SCH (21:31)
[2019-04-21] MEDS: OLANZapine 2.5mg tab ORAL SCH (21:32)
[2019-04-21] MEDS: Atorvastatin 80mg tab ORAL SCH (21:32)
--- NOTE | 2019-04-21 22:30 | History and Physical Report ---
DATE OF ADMISSION: 04/20/2019 HISTORY OF PRESENT ILLNESS: The patient fell at the [facility]. We need to rule out syncope since he did not have a witnessed fall. The patient also had a head injury. The patient is on blood thinners, need to rule out intracranial hemorrhage. The patient denies nausea or vomiting. Does have headaches. Denies shortness of breath. Denies cough. Denies fever or chills. The patient does have a history of Alzheimer's and is relatively a very poor historian and does have complaint of headaches. Denies shortness of breath. Denies nausea, vomiting, or diarrhea. No fever or chills. PAST MEDICAL HISTORY: Alzheimer's dementia, COPD, ventricular hypertrophy, history of NE, CAD, NIDDM, hypertension, intractable vomiting. The patient also has a borderline elevated troponin, also has acute renal failure, admitted for those reasons for monitoring. BPH, seizure disorder, hypertension, and constipation. PAST SURGICAL HISTORY: Denies. ALLERGIES: No known allergies. FAMILY HISTORY: Noncontributory. SOCIAL HISTORY: Denies history of smoking, alcohol, or illicit drugs. Comes from a [facility]. MEDICATION-[place]: The patient is on amlodipine, Cogentin, Lipitor, Colace, gabapentin, hydralazine, insulin, Zyprexa, and Dilantin . REVIEW OF SYSTEMS: HEENT: Reports headaches. RESPIRATORY: Denies shortness of breath. Denies cough. CARDIOVASCULAR: Denies chest pain. GASTROINTESTINAL: Denies nausea, vomiting, diarrhea. EXTREMITIES: Denies pain in lower extremities. CENTRAL NERVOUS SYSTEM: Denies change in speech pattern. However, the patient is a poor historian. PHYSICAL EXAMINATION: VITAL SIGNS: Temperature 98.2, pulse 78, blood pressure 154/96. HEENT: PERRLA. NECK: Supple. CHEST: Clear to auscultation. CARDIOVASCULAR: Regular rate and rhythm. No murmurs or extra sounds. GASTROINTESTINAL: Soft, nontender, nondistended. No organomegaly. EXTREMITIES: No edema. Reflexes in both sides. Oriented to name only. Moves all extremities. Dorsalis pedal pulses are present. LABORATORY DATA: WBC of 7, hemoglobin 10.4, platelets of 209,000. Sodium 145, potassium 4.3, BUN of 32, creatinine 1.7, glucose of 143. Troponin of 0.075. ASSESSMENT AND PLAN: Status post fall, rule out syncope since it was not witnessed, head surgery, on blood thinners at the [facility]. Mildly elevated troponin as well as acute renal failure as well as hypertension. I have asked Dr. Boss, Dr. Lopez, Dr. Hale to see the patient to help with the management of the above-mentioned diagnoses and treatment. We will monitor very closely in the telemetric unit. David Wasserman M.D. DR: DARIO JOB#: [id number] CC:
[2019-04-22] VITALS: BP 110/77
[2019-04-22 00:36] LABS: APPEARANCE,URINE CLEAR; BILIRUBIN, URINE NEGATIVE (NEGATIVE); COLOR,URINE PALE YELLOW; GLUCOSE, URINE (UA) 4+ (NEGATIVE); KETONES,URINE NEGATIVE (NEGATIVE); LEUKOCYTE ESTERASE ,URINE NEGATIVE (NEGATIVE); NITRITE,URINE NEGATIVE (NEGATIVE); PH,URINE 5 (4.5-8.0); PROTEIN,URINE 3+ (NEGATIVE); UROBILINOGEN,URINE NORMAL MG/DL (0.0-1.0)
--- NOTE | 2019-04-22 03:30 | Consultation ---
DATE OF CONSULTATION: 04/21/2019 CARDIOLOGY CONSULTATION CONSULTING PHYSICIAN: Enrique Lopez M.D. REFERRING PHYSICIAN: David Wasserman M.D. REASON FOR CONSULTATION: Management of elevated troponin I level. HISTORY OF PRESENT ILLNESS: The patient is a very unfortunate 53-year-old gentleman, who is developmentally delayed with a prior history of non-ST elevation myocardial infarction, history of chronic obstructive pulmonary disease, psychosis, history of head injury, who presents following an episode of fall with which he hit his head. The patient is not capable of providing any history given his incoherence and lack of recollection of all the events. At the time of arrival to the hospital, his blood pressure was 182/71 mmHg and pulse rate of 58. A 12-lead electrocardiogram was significant for early repolarization abnormalities in leads V1, V2, V3, and LVH with repolarization abnormalities. His 2 troponins were slightly elevated at 0.07 and 0.1. The patient was admitted to telemetry for further evaluation and management. Cardiology consultation was made at the request of Dr. Wasserman for evaluation of non-ST elevation myocardial infarction and abnormal ECG. PAST MEDICAL HISTORY: Significant for psychosis, chronic obstructive pulmonary disease, hyperglycemia, [id number] myocardial infarction, diabetes mellitus, head injury, dementia, hypertension, intractable vomiting in the past, hyperlipidemia, anemia, CKD stage 3, schizoaffective disorder, history of seizures, history of epilepsy, history of encephalopathy, history of cataract, history of chronic pancreatitis, and history of GERD. PAST SURGICAL HISTORY: Single lead ICD implantation. LIST OF MEDICATIONS: Aspirin 81 mg daily, amlodipine 10 mg p.o. daily, acetaminophen 1000 mg q.6 hours p.r.n. moderate pain, atorvastatin 80 mg p.o. at bedtime, Cogentin 0.5 mg daily, Dulcolax 10 mg rectal p.r.n. constipation, clonidine 0.2 mg q.2 hours p.r.n. high blood pressure, cranberry 2 tablets p.o. daily, Depakote 500 mg twice daily, Colace 100 mg p.o. daily, fish oil 1 g p.o. daily, gabapentin 100 mg twice daily, hydralazine 100 mg 3 times a day, NovoLog insulin, Levemir 20 units subcutaneous daily, magnesium hydroxide 30 mL daily p.r.n. constipation, metoprolol 100 mg twice daily, multivitamin one tablet daily, fleet enema 133 rectal daily p.r.n. constipation, Zyprexa 2.5 mg at bedtime, phenytoin 100 mg 3 times a day, and Hytrin 5 mg p.o. at bedtime. ALLERGIES: No known drug allergies. SOCIAL HISTORY: Born in [place]. 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 Denies any tobacco, but in the past he had tried alcohol and drugs. REVIEW OF SYSTEMS: A 12-system review cannot be done as the patient is completely incoherent. PHYSICAL EXAMINATION: VITAL SIGNS: Blood pressure was 182/71, pulse of 58, respirations 20, temperature 98.1 degrees Fahrenheit, and O2 saturation 96% on room air. GENERAL: The patient is a very unfortunate 63-year-old gentleman, who is seen in Cardiology consultation, not coherent. HEENT: Atraumatic and normocephalic. Anicteric. Pupils are equal, round, and reactive to light and accommodation. Extraocular muscles intact. NECK: JVP less than 5 cm. No carotid bruit. Carotid upstrokes 2+ bilaterally. CVS: Normal S1, S2. Regular rate and rhythm. No murmurs, gallops, or rubs. PMI is at fourth intercostal space in the midclavicular line. LUNGS: Clear to auscultation bilaterally. ABDOMEN: Soft, nontender, and nondistended. No hepatosplenomegaly. Positive bowel sounds. EXTREMITIES: No evidence of edema, clubbing, or cyanosis. LABORATORY FINDINGS: Sodium was 145, potassium is 4.3, chloride 110, bicarbonate 26, BUN 33, creatinine is 1.7, and glucose is 163. Calcium is 8.5. Troponin I x2 negative. INR is 0.9. Toxicology, phenytoin level 2.2 and valproic acid level is 3.1. WBC was 7.0, hemoglobin of 10.4, hematocrit of 32.7, and platelet count is 209,000. ASSESSMENT AND PLAN: The patient is a very unfortunate 53-year-old gentleman, who is seen in Cardiology consultation. 1. Status post fall. It is not clear whether this patient had a mechanical fall or was a fall following syncope as the patient does not have any recollection and is incoherent. The patient has an AICD implant. Therefore, if this is a ventricular arrhythmia, he would have gotten a shock. We will try to interrogate the device at this time. 2. Slight elevation of troponin I level in this patient. His not behaving as an acute plaque rupture seen in acute coronary syndrome. We cannot obtain any history from the patient due to the fact that he has developmental delay. There are some dynamic EKG changes. However, the pattern of ST segments and T-waves are not so much compatible for ST-elevation myocardial infarction and represents the precordial lead early repolarization abnormality in addition with presence of LVH with LVH repolarization abnormalities in the lateral leads. Given the fact that the patient is hemodynamically stable, we would like to obtain 2D echocardiography for assessment of LV systolic and diastolic functions and assessment of wall motion. The patient has had prior history of non-ST elevation myocardial infarction in the past and it is not clear whether he had any prior history of cardiac catheterization. I would think that with all the comorbidities as mentioned above, medical therapy would be the mainstay of therapy for this patient. I would like to thank Dr. Wasserman for allowing me to participate in the care of this patient. Enrique Lopez M.D. DR: MONIK JOB#: [id number] CC:
[2019-04-22 04:00] VITALS: BP 144/71
[2019-04-22] MEDS: HydrALAZINE 50mg tab ORAL SCH ×3 (05:32→21:16)
[2019-04-22] MEDS: NovoLOG Insulin Flexpen SUBQ SCH ×4 (05:33→21:32)
[2019-04-22 07:10] LABS: BASOPHILS % (AUTO) 1.2 % (0.0-2.0); EOSINOPHILS % (AUTO) 2.2 % (0.0-3.0); HEMATOCRIT 32.3 % (42.0-52.0); HEMOGLOBIN 10.6 G/DL (14.2-18.0); MEAN CORPUSCULAR VOLUME 87 FL (80-99); NEUTROPHILS % (AUTO) 56.6 % (45.0-75.0); PLATELET COUNT 212 K/UL (150-450); RED BLOOD COUNT 3.73 M/UL (4.70-6.10); RED CELL DISTRIBUTION WIDTH 11.3 % (11.6-14.8)
--- NOTE | 2019-04-22 07:28 | NUR ---
HAND-OFF: Report given to Patricia Viramontes Pt is stable condition.
--- NOTE | 2019-04-22 07:30 | NUR ---
NURSE NOTES: Received report from [facility]. Patient laying down on bed. Patient is Alert and oriented x 2. Patient is on room air, on low sodium, mechanical soft ground, CCHO (medium) diet-instructed. No signs of respiratory distress noted at this time. Patient has left forearm G-20 d5 1/2 Saline running at 75cc/hour that is dry,clean and intact. Bed is in lowest position, call light within reach. Bed alarm is on. Will continue plan of care.
[2019-04-22 07:54] LABS: ALANINE AMINOTRANSFERASE 59 U/L (12-78); ALBUMIN/GLOBULIN RATIO 0.8 (1.0-2.7); ALKALINE PHOSPHATASE 231 U/L (46-116); ANION GAP 9 mmol/L (5-15); ASPARTATE AMINO TRANSFERASE 31 U/L (15-37); BILIRUBIN,TOTAL 0.1 MG/DL (0.2-1.0); BLOOD UREA NITROGEN 31 mg/dL (7-18); CALCIUM 8.4 MG/DL (8.5-10.1); CARBON DIOXIDE 27 MMOL/L (21-32); CHLORIDE 110 MMOL/L (98-107); CHOLESTEROL 156 MG/DL (< 200); CREATINE KINASE 95 U/L (26-308); CREATININE 1.8 MG/DL (0.55-1.30); GAMMA GLUTAMYL TRANSPEPTIDASE 134 U/L (5-85); HDL CHOLESTEROL 53 MG/DL (40-60); PHOSPHORUS 4.7 MG/DL (2.5-4.9); POTASSIUM 4.1 MMOL/L (3.5-5.1); SODIUM 146 MMOL/L (136-145); TRIGLYCERIDES 78 MG/DL (30-150)
[2019-04-22 08:00] VITALS: BP 140/73
[2019-04-22] MEDS: Depakote 500mg tab ORAL SCH ×2 (08:59→17:27)
[2019-04-22] MEDS: Doxazosin 1mg Tab ORAL SCH (08:59)
[2019-04-22] MEDS: Aspirin EC 81mg tab ORAL SCH (09:00)
[2019-04-22] MEDS ORDERED: Metoprolol Tartrate 50mg tab ORAL SCH (09:00)
[2019-04-22] MEDS: Docusate 100mg cap ORAL SCH ×3 (09:01→17:28)
[2019-04-22] MEDS: Tamsulosin 0.4mg cap ORAL SCH ×2 (09:01→17:28)
[2019-04-22] MEDS: Benztropine 1mg tab ORAL SCH (09:01)
[2019-04-22] MEDS: Phenytoin 100mg cap ORAL SCH ×3 (09:01→17:28)
[2019-04-22] MEDS: Levemir Flexpen SUBQ SCH (09:02)
[2019-04-22 12:00] VITALS: BP 147/62
--- NOTE | 2019-04-22 14:20 | Nephrology Progress Note ---
Assessment/Plan Problem List: (1) Acute on chronic renal failure Assessment: Partly dehydration (2) Diabetes Assessment: Living A1c over 10 (3) Elevated troponin Assessment: Ejection fraction 60% (4) Syncope (5) Hyperglycemia Assessment: 3+ proteinuria (6) Psychosis (7) Hypertension (8) Diabetic nephropathy Assessment Acute on chronic renal failure Dehydration Anemia of chronic disease since iron panel B12 and folate are normal syncope Elevated troponin Diabetes mellitus Systemic hypertension History of psychiatric disease Plan Diet to diabetic friendly Adjust blood pressure medication Adjust antiseizure medication Slow hydration Monitor renal parameters Continue per consultants Per orders Subjective ROS Limited/Unobtainable: No Constitutional: Reports: malaise Objective Objective Last 24 Hour Vital Signs Date Time Temp Pulse Resp B/P (MAP) Pulse Ox O2 Delivery O2 Flow Rate FiO2 04/22/19 13:26 147/62 04/22/19 12:00 98.2 61 18 147/62 (90) 97 04/22/19 12:00 55 04/22/19 09:00 65 140/73 04/22/19 09:00 65 140/73 04/22/19 09:00 Room Air 04/22/19 08:00 57 04/22/19 08:00 96.8 65 17 140/73 (95) 97 04/22/19 05:32 144/71 04/22/19 04:00 54 04/22/19 04:00 97.9 54 18 144/71 (95) 98 04/22/19 00:00 97.5 57 18 110/77 (88) 98 04/22/19 00:00 54 04/21/19 21:32 157/78 04/21/19 21:00 Room Air 04/21/19 20:00 61 04/21/19 20:00 97.6 62 18 157/78 (104) 95 04/21/19 18:12 54 158/78 04/21/19 17:49 158/78 04/21/19 16:00 54 04/21/19 16:00 98.2 55 19 158/78 (104) 97 04/21/19 14:22 154/81 Intake and Output 04/21/19 04/22/19 19:00 07:00 Intake Total 900 ml Balance 900 ml Intake Oral 900 ml # Voids 3 # Bowel Movements 1 Laboratory Tests 04/21/19 22:00: Urine Color Pale yellow, Urine Appearance Clear, Urine pH 5, Urine Specific [place] 1.015, Urine Protein 3+H, Urine Glucose (UA) 4+H, Urine Ketones Negative , Urine Blood Negative, Urine Nitrite Negative, Urine Bilirubin Negative, Urine Urobilinogen Normal, Urine Leukocyte Esterase Negative, Urine RBC 0, Urine WBC 0 -2, Urine Squamous Epithelial Cells Occasional, Urine Bacteria None 04/22/19 05:50: White Blood Count 6.0, Red Blood Count 3.73L, Hemoglobin 10.6L, Hematocrit 32.3L , Mean Corpuscular Volume 87, Mean Corpuscular Hemoglobin 28.4, Mean Corpuscular Hemoglobin Concent 32.8, Red Cell Distribution Width 11.3L, Platelet Count 212, Mean Platelet Volume 7.1, Neutrophils (%) (Auto) 56.6, Lymphocytes (%) (Auto) 31.0, Monocytes (%) (Auto) 9.0, Eosinophils (%) (Auto) 2.2, Basophils (%) (Auto) 1.2, Sodium Level 146H, Potassium Level 4.1, Chloride Level 110H, Carbon Dioxide Level 27, Anion Gap 9, Blood Urea Nitrogen 31H, Creatinine 1.8H, Estimat Glomerular Filtration Rate 47.8, Glucose Level 82, Hemoglobin A1c 10.4H, Uric Acid 6.5, Calcium Level 8.4L, Phosphorus Level 4.7, Magnesium Level 2.1, Total Bilirubin 0.1L, Gamma Glutamyl Transpeptidase 134H, Aspartate Amino Transf (AST/SGOT) 31, Alanine Aminotransferase (ALT/SGPT) 59, Alkaline Phosphatase 231H, Total Creatine Kinase 95, Troponin I 0.093H, C- Reactive Protein, Quantitative < 0.4, Pro-B-Type Natriuretic Peptide 733H, Total Protein 6.6, Albumin 3.0L, Globulin 3.6, Albumin/Globulin Ratio 0.8L, Triglycerides Level 78, Cholesterol Level 156, LDL Cholesterol 79, HDL Cholesterol 53, Cholesterol/HDL Ratio 2.9L, Thyroid Stimulating Hormone (TSH) 1.457 Height (Feet): 5 Height (Inches): 10.00 Weight (Pounds): 185 General Appearance: no apparent distress, lethargic Cardiovascular: bradycardia Respiratory/Chest: decreased breath sounds Abdomen: soft Jeb Hale MD Apr 22, 2019 14:20
[2019-04-22 16:00] VITALS: BP 169/81
[2019-04-22] MEDS: Nitroglycerin Patch 0.4mg TDERMAL SCH (17:27)
--- NOTE | 2019-04-22 19:30 | NUR ---
NURSE NOTES: Received patient from Patricia STAUFFER. Patient in bed, on room air, no signs of respiratory distress. 1/2 NS infusing at 75ml/hr via left forearm 20gauge.
--- NOTE | 2019-04-22 19:49 | NUR ---
HAND-OFF: Report given to [facility]. Patient is on bed, no complaints of pain at this time, plan of care endorsed.
[2019-04-22 20:00] VITALS: BP 157/77
--- NOTE | 2019-04-22 20:44 | General Progress Note ---
Assessment/Plan Problem List: (1) Head trauma ICD Codes: S09.90XA - Unspecified injury of head, initial encounter SNOMED: 39252652 Qualifiers: Qualified Codes: S09.90XA - Unspecified injury of head, initial encounter (2) Elevated troponin ICD Codes: R79.89 - Other specified abnormal findings of blood chemistry SNOMED: 013309815, 647057891, 095816292 (3) Syncope ICD Codes: R55 - Syncope and collapse SNOMED: 644794498 Qualifiers: Qualified Codes: R55 - Syncope and collapse (4) Hypertension ICD Codes: I10 - Essential (primary) hypertension SNOMED: 44156123 Qualifiers: Qualified Codes: I10 - Essential (primary) hypertension (5) Diabetic nephropathy ICD Codes: E11.21 - Type 2 diabetes mellitus with diabetic nephropathy SNOMED: 219325234 (6) Hypertension ICD Codes: I10 - Essential (primary) hypertension SNOMED: 71040862 (7) Diabetes ICD Codes: E11.9 - Type 2 diabetes mellitus without complications SNOMED: 76088992 Status: progressing Assessment/Plan: no headache dementia reviewed chart na labs no chest pain no sob Subjective ROS Limited/Unobtainable: Yes Allergies: Coded Allergies: No Known Allergies (Unverified , 08/31/17) Objective Last 24 Hour Vital Signs Date Time Temp Pulse Resp B/P (MAP) Pulse Ox O2 Delivery O2 Flow Rate FiO2 04/22/19 17:28 65 169/81 04/22/19 17:27 65 169/81 04/22/19 17:27 169/81 04/22/19 16:00 66 04/22/19 16:00 98.7 65 18 169/81 (110) 100 04/22/19 13:26 147/62 04/22/19 12:00 98.2 61 18 147/62 (90) 97 04/22/19 12:00 55 04/22/19 09:00 65 140/73 04/22/19 09:00 65 140/73 04/22/19 09:00 Room Air 04/22/19 08:00 57 04/22/19 08:00 96.8 65 17 140/73 (95) 97 04/22/19 05:32 144/71 04/22/19 04:00 54 04/22/19 04:00 97.9 54 18 144/71 (95) 98 04/22/19 00:00 97.5 57 18 110/77 (88) 98 04/22/19 00:00 54 04/21/19 21:32 157/78 04/21/19 21:00 Room Air Intake and Output 04/21/19 04/22/19 19:00 07:00 Intake Total 900 ml Balance 900 ml Intake Oral 900 ml # Voids 3 # Bowel Movements 1 Laboratory Tests 04/21/19 22:00: Urine Color Pale yellow, Urine Appearance Clear, Urine pH 5, Urine Specific [place] 1.015, Urine Protein 3+H, Urine Glucose (UA) 4+H, Urine Ketones Negative , Urine Blood Negative, Urine Nitrite Negative, Urine Bilirubin Negative, Urine Urobilinogen Normal, Urine Leukocyte Esterase Negative, Urine RBC 0, Urine WBC 0 -2, Urine Squamous Epithelial Cells Occasional, Urine Bacteria None 04/22/19 05:50: White Blood Count 6.0, Red Blood Count 3.73L, Hemoglobin 10.6L, Hematocrit 32.3L , Mean Corpuscular Volume 87, Mean Corpuscular Hemoglobin 28.4, Mean Corpuscular Hemoglobin Concent 32.8, Red Cell Distribution Width 11.3L, Platelet Count 212, Mean Platelet Volume 7.1, Neutrophils (%) (Auto) 56.6, Lymphocytes (%) (Auto) 31.0, Monocytes (%) (Auto) 9.0, Eosinophils (%) (Auto) 2.2, Basophils (%) (Auto) 1.2, Sodium Level 146H, Potassium Level 4.1, Chloride Level 110H, Carbon Dioxide Level 27, Anion Gap 9, Blood Urea Nitrogen 31H, Creatinine 1.8H, Estimat Glomerular Filtration Rate 47.8, Glucose Level 82, Hemoglobin A1c 10.4H, Uric Acid 6.5, Calcium Level 8.4L, Phosphorus Level 4.7, Magnesium Level 2.1, Total Bilirubin 0.1L, Gamma Glutamyl Transpeptidase 134H, Aspartate Amino Transf (AST/SGOT) 31, Alanine Aminotransferase (ALT/SGPT) 59, Alkaline Phosphatase 231H, Total Creatine Kinase 95, Troponin I 0.093H, C- Reactive Protein, Quantitative < 0.4, Pro-B-Type Natriuretic Peptide 733H, Total Protein 6.6, Albumin 3.0L, Globulin 3.6, Albumin/Globulin Ratio 0.8L, Triglycerides Level 78, Cholesterol Level 156, LDL Cholesterol 79, HDL Cholesterol 53, Cholesterol/HDL Ratio 2.9L, Thyroid Stimulating Hormone (TSH) 1.457 Height (Feet): 5 Height (Inches): 10.00 Weight (Pounds): 185 Cardiovascular: normal rate Respiratory/Chest: lungs clear David Wasserman MD Apr 22, 2019 20:44
[2019-04-22] MEDS ORDERED: CATAPRES0.2 MG ORAL (20:52)
[2019-04-22] MEDS ORDERED: METOPROLOL TAR100 M1 ORAL (20:52)
[2019-04-22] MEDS ORDERED: HYDRALAZINE HC100 MG ORAL (20:52)
[2019-04-22] MEDS: OLANZapine 2.5mg tab ORAL SCH (21:16)
[2019-04-22] MEDS: Atorvastatin 80mg tab ORAL SCH (21:16)
[2019-04-23] VITALS: BP 166/77
[2019-04-23 04:00] VITALS: BP 179/89
[2019-04-23 05:46] VITALS: BP 167/78
[2019-04-23] MEDS: HydrALAZINE 50mg tab ORAL SCH ×2 (05:48→13:04)
[2019-04-23] MEDS: NovoLOG Insulin Flexpen SUBQ SCH ×2 (05:55→12:18)
--- NOTE | 2019-04-23 07:30 | NUR ---
NURSE NOTES: Receive pt from AL STAUFFER. Pt is awake and confused, pt is on RA, no SOB or acute respiratory distress noted. pt is on continues heart monitoring. pt has in tact iv access LFA 20G is running well. all needs attended, bed is locked and is in the lowest position, call light within easy reach. will continue to monitor.
[2019-04-23 08:07] LABS: BASOPHILS % (AUTO) 1.1 % (0.0-2.0); EOSINOPHILS % (AUTO) 2.8 % (0.0-3.0); HEMATOCRIT 31.8 % (42.0-52.0); HEMOGLOBIN 10.6 G/DL (14.2-18.0); LYMPHOCYTES % (AUTO) 20.6 % (20.0-45.0); MEAN CORPUSCULAR VOLUME 87 FL (80-99); MONOCYTES % (AUTO) 9.1 % (1.0-10.0); NEUTROPHILS % (AUTO) 66.4 % (45.0-75.0); PLATELET COUNT 208 K/UL (150-450); RED BLOOD COUNT 3.64 M/UL (4.70-6.10); RED CELL DISTRIBUTION WIDTH 11.6 % (11.6-14.8); WHITE BLOOD COUNT 7.1 K/UL (4.8-10.8)
[2019-04-23 08:35] LABS: ALANINE AMINOTRANSFERASE 46 U/L (12-78); ALBUMIN 2.9 G/DL (3.4-5.0); ALBUMIN/GLOBULIN RATIO 0.8 (1.0-2.7); ALKALINE PHOSPHATASE 230 U/L (46-116); ANION GAP 8 mmol/L (5-15); ASPARTATE AMINO TRANSFERASE 20 U/L (15-37); BILIRUBIN,TOTAL 0.1 MG/DL (0.2-1.0); BLOOD UREA NITROGEN 28 mg/dL (7-18); CALCIUM 8.7 MG/DL (8.5-10.1); CARBON DIOXIDE 26 MMOL/L (21-32); CHLORIDE 110 MMOL/L (98-107); CREATININE 1.6 MG/DL (0.55-1.30); PHOSPHORUS 4.5 MG/DL (2.5-4.9); POTASSIUM 4.2 MMOL/L (3.5-5.1); SODIUM 144 MMOL/L (136-145)
[2019-04-23 09:00] VITALS: BP 178/85
[2019-04-23] MEDS: Docusate 100mg cap ORAL SCH ×2 (09:30→12:17)
[2019-04-23] MEDS: Doxazosin 1mg Tab ORAL SCH (09:30)
[2019-04-23] MEDS: Phenytoin 100mg cap ORAL SCH ×2 (09:31→12:17)
[2019-04-23] MEDS: Depakote 500mg tab ORAL SCH (09:31)
[2019-04-23] MEDS: Aspirin EC 81mg tab ORAL SCH (09:32)
[2019-04-23] MEDS: Tamsulosin 0.4mg cap ORAL SCH (09:32)
[2019-04-23] MEDS: Benztropine 1mg tab ORAL SCH (09:32)
[2019-04-23] MEDS: Levemir Flexpen SUBQ SCH (09:38)
--- NOTE | 2019-04-23 10:48 | NUR ---
*-*DISCHARGE PLANNING*-* PATIENT HAS BEEN REFERRED BACK TO: [facility] P: [phone] F: [phone]
--- NOTE | 2019-04-23 10:55 | General Progress Note ---
Assessment/Plan Problem List: (1) Head trauma ICD Codes: S09.90XA - Unspecified injury of head, initial encounter SNOMED: 55732387 Qualifiers: Qualified Codes: S09.90XA - Unspecified injury of head, initial encounter (2) Elevated troponin ICD Codes: R79.89 - Other specified abnormal findings of blood chemistry SNOMED: 944080152, 350756326, 919231627 (3) Syncope ICD Codes: R55 - Syncope and collapse SNOMED: 302191632 Qualifiers: Qualified Codes: R55 - Syncope and collapse (4) Hypertension ICD Codes: I10 - Essential (primary) hypertension SNOMED: 05447400 Qualifiers: Qualified Codes: I10 - Essential (primary) hypertension (5) Diabetic nephropathy ICD Codes: E11.21 - Type 2 diabetes mellitus with diabetic nephropathy SNOMED: 568896556 (6) Hypertension ICD Codes: I10 - Essential (primary) hypertension SNOMED: 78058556 (7) Diabetes ICD Codes: E11.9 - Type 2 diabetes mellitus without complications SNOMED: 80882864 Status: progressing Assessment/Plan: afebrile stable for dc dc to snf see dc summary for details Subjective Allergies: Coded Allergies: No Known Allergies (Unverified , 08/31/17) Objective Last 24 Hour Vital Signs Date Time Temp Pulse Resp B/P (MAP) Pulse Ox O2 Delivery O2 Flow Rate FiO2 04/23/19 09:47 62 178/85 04/23/19 09:32 178/85 04/23/19 09:31 62 178/85 04/23/19 09:00 98.1 62 20 178/85 (116) 100 04/23/19 09:00 Room Air 04/23/19 07:47 60 04/23/19 05:48 167/78 04/23/19 05:46 63 167/78 (107) 04/23/19 04:00 97.5 60 18 179/89 (119) 97 04/23/19 04:00 60 04/23/19 03:53 179/80 04/23/19 00:00 57 04/23/19 00:00 97.5 58 21 166/77 (106) 96 04/22/19 21:16 157/77 04/22/19 21:00 Room Air 04/22/19 20:00 98.1 57 19 157/77 (103) 98 04/22/19 20:00 60 04/22/19 17:28 65 169/81 04/22/19 17:27 65 169/81 04/22/19 17:27 169/81 04/22/19 16:00 66 04/22/19 16:00 98.7 65 18 169/81 (110) 100 04/22/19 13:26 147/62 04/22/19 12:00 98.2 61 18 147/62 (90) 97 04/22/19 12:00 55 Intake and Output 04/22/19 04/23/19 19:00 07:00 Intake Total 750 ml 900 ml Output Total 2 ml 1700 ml Balance 748 ml -800 ml Intake Oral 750 ml IV Total 900 ml Output Urine Total 2 ml 1700 ml # Voids 4 4 Laboratory Tests 04/23/19 07:01: White Blood Count 7.1, Red Blood Count 3.64L, Hemoglobin 10.6L, Hematocrit 31.8L , Mean Corpuscular Volume 87, Mean Corpuscular Hemoglobin 29.1, Mean Corpuscular Hemoglobin Concent 33.4, Red Cell Distribution Width 11.6, Platelet Count 208, Mean Platelet Volume 7.6, Neutrophils (%) (Auto) 66.4, Lymphocytes (% ) (Auto) 20.6, Monocytes (%) (Auto) 9.1, Eosinophils (%) (Auto) 2.8, Basophils ( %) (Auto) 1.1, Sodium Level 144, Potassium Level 4.2, Chloride Level 110H, Carbon Dioxide Level 26, Anion Gap 8, Blood Urea Nitrogen 28H, Creatinine 1.6H, Estimat Glomerular Filtration Rate 54.7, Glucose Level 114H, Calcium Level 8.7, Phosphorus Level 4.5, Magnesium Level 2.0, Total Bilirubin 0.1L, Aspartate Amino Transf (AST/SGOT) 20, Alanine Aminotransferase (ALT/SGPT) 46, Alkaline Phosphatase 230H, C-Reactive Protein, Quantitative 0.6, Pro-B-Type Natriuretic Peptide 422H, Total Protein 6.5, Albumin 2.9L, Globulin 3.6, Albumin/Globulin Ratio 0.8L, Phenytoin (Dilantin) Level 4.3L, Valproic Acid (Depakene) Level 30L 04/23/19 07:10: Urine Random Sodium 51 Height (Feet): 5 Height (Inches): 10.00 Weight (Pounds): 185 David Wasserman MD Apr 23, 2019 10:55
[2019-04-23 11:52] VITALS: BP 153/80
--- NOTE | 2019-04-23 12:16 | NUR ---
*-*DISCHARGE PLANNED*-* PATIENT HAS BEEN ACCEPTED AND WILL BE DISCHARGED BACK TO: [facility] P: [phone] F: [phone] # A.1.B SKILLED [facility] [id number] S/W [facility] ETA 12:45PM
[2019-04-23 13:04] VITALS: BP 153/80
--- NOTE | 2019-04-23 13:13 | NUR ---
NURSE NOTES: pt has discharge order, all D/C assessments and instructions done, pt is stable, V/S stable, all belongings are with pt and pt signed belongings list. Report given to [facility], IV access D/C, skin is intact. pt left hospital with accompany of ambulance personnel.
[2019-04-23] MEDS ORDERED: NS 275ml ONE (13:17)
--- NOTE | 2019-04-23 13:20 | Nephrology Progress Note ---
Assessment/Plan Problem List: (1) Acute on chronic renal failure Assessment: Partly dehydration (2) Diabetes Assessment: Living A1c over 10 (3) Elevated troponin Assessment: Ejection fraction 60% (4) Syncope (5) Hyperglycemia Assessment: 3+ proteinuria (6) Psychosis (7) Hypertension (8) Diabetic nephropathy Assessment Acute on chronic renal failure Dehydration Anemia of chronic disease since iron panel B12 and folate are normal syncope Elevated troponin Diabetes mellitus Systemic hypertension History of psychiatric disease Plan Stable from renal standpoint to view Diet to diabetic friendly Adjust blood pressure medication Adjust antiseizure medication Slow hydration Monitor renal parameters Continue per consultants Per orders Subjective ROS Limited/Unobtainable: No Interval Events/Complaints seen 8 am Constitutional: Reports: malaise Objective Objective Last 24 Hour Vital Signs Date Time Temp Pulse Resp B/P (MAP) Pulse Ox O2 Delivery O2 Flow Rate FiO2 04/23/19 13:04 153/80 04/23/19 11:52 97.9 61 20 153/80 (104) 100 04/23/19 11:50 54 04/23/19 09:47 62 178/85 04/23/19 09:32 178/85 04/23/19 09:31 62 178/85 04/23/19 09:00 98.1 62 20 178/85 (116) 100 04/23/19 09:00 Room Air 04/23/19 07:47 60 04/23/19 05:48 167/78 04/23/19 05:46 63 167/78 (107) 04/23/19 04:00 97.5 60 18 179/89 (119) 97 04/23/19 04:00 60 04/23/19 03:53 179/80 04/23/19 00:00 57 04/23/19 00:00 97.5 58 21 166/77 (106) 96 04/22/19 21:16 157/77 04/22/19 21:00 Room Air 04/22/19 20:00 98.1 57 19 157/77 (103) 98 04/22/19 20:00 60 04/22/19 17:28 65 169/81 04/22/19 17:27 65 169/81 04/22/19 17:27 169/81 04/22/19 16:00 66 04/22/19 16:00 98.7 65 18 169/81 (110) 100 04/22/19 13:26 147/62 Intake and Output 04/22/19 04/23/19 19:00 07:00 Intake Total 750 ml 900 ml Output Total 2 ml 1700 ml Balance 748 ml -800 ml Intake Oral 750 ml IV Total 900 ml Output Urine Total 2 ml 1700 ml # Voids 4 4 Laboratory Tests 04/23/19 07:01: White Blood Count 7.1, Red Blood Count 3.64L, Hemoglobin 10.6L, Hematocrit 31.8L , Mean Corpuscular Volume 87, Mean Corpuscular Hemoglobin 29.1, Mean Corpuscular Hemoglobin Concent 33.4, Red Cell Distribution Width 11.6, Platelet Count 208, Mean Platelet Volume 7.6, Neutrophils (%) (Auto) 66.4, Lymphocytes (% ) (Auto) 20.6, Monocytes (%) (Auto) 9.1, Eosinophils (%) (Auto) 2.8, Basophils ( %) (Auto) 1.1, Sodium Level 144, Potassium Level 4.2, Chloride Level 110H, Carbon Dioxide Level 26, Anion Gap 8, Blood Urea Nitrogen 28H, Creatinine 1.6H, Estimat Glomerular Filtration Rate 54.7, Glucose Level 114H, Calcium Level 8.7, Phosphorus Level 4.5, Magnesium Level 2.0, Total Bilirubin 0.1L, Aspartate Amino Transf (AST/SGOT) 20, Alanine Aminotransferase (ALT/SGPT) 46, Alkaline Phosphatase 230H, C-Reactive Protein, Quantitative 0.6, Pro-B-Type Natriuretic Peptide 422H, Total Protein 6.5, Albumin 2.9L, Globulin 3.6, Albumin/Globulin Ratio 0.8L, Phenytoin (Dilantin) Level 4.3L, Valproic Acid (Depakene) Level 30L 04/23/19 07:10: Urine Random Sodium 51 Height (Feet): 5 Height (Inches): 10.00 Weight (Pounds): 185 Jeb Hale MD Apr 23, 2019 13:20
--- NOTE | 2019-04-23 13:44 | NUR ---
CASE MANAGEMENT:REVIEW 04/20/19 SI: 53 YR OLD MALE BIBA FROM [facility] CC: MULTIPLE FALLS SI: SYNCOPE. HEAD INJURY.ELEVATED TROPONIN 98.1 58 20 182/71 96% ON RA TROPONIN(+) 0.075 IS: ASA PO NORVASC PO CT HEAD CHEST XRAY : TO TELEMETRY IS: LOPRESSOR PO BID
--- NOTE | 2019-04-24 14:59 | Discharge Summary ---
Discharge Summary Discharge Summary _ DATE OF ADMISSION: 04/20/2019 DATE OF DISCHARGE: 04/23/2019 DISCHARGED BY: Dr. Wasserman REASON FOR ADMISSION: 53 years old male with past medical history significant for COPD, diabetes mellitus, hypertension, myocardial infarction, presented after he sustained a fall and hit his head. Patient was only taking aspirin, no anticoagulation, according to medical records . Upon evaluation blood pressure was significantly elevated 182/71 , pulse oximetry was stable on room air , and heart rate was 58. EKG revealed sinus rhythm, left ventricular hypertrophy, no acute ischemic changes. Minimally elevated troponin 0.075 [address] CT of the head revealed no acute intracranial hemorrhage, mass-effect or edema. Chest x-ray demonstrated no acute cardiopulmonary pathology. Linear atelectasis at the lateral right lung base noted. Chest x-ray revealed right base atelectasis. Laboratory work-up revealed no leukocytosis, evidence of anemia with hemoglobin 10.4, hematocrit 32.7 , platelet count 219. BUN 41 creatinine 2.2. Glucose 212. Stable LFT. Patient was placed on panel monitor and subsequently admitted for further management. CONSULTANTS: event crew technician Dr. Lopez dementia program director Dr. Hale [facility] COURSE: Patient admitted to monitored floor. Film Producer and dementia program director followed. Echocardiogram demonstrated preserved ejection fraction of 60% with no evidence of wall motion abnormality. No evidence of pericardial effusion. Right ventricular systolic pressure of 20. Supplemental oxygen provided and titrated to keep pulse oximetry above 92%. Pulse oximetry was stable on room air. Film Producer followed. Per event crew technician it was not clear whether patient had a mechanical fall or it was a fall following syncope. Patient did not have any recollection . Patient has an AICD implant. Interrogation will be done as outpatient. If patient indeed suffered from ventricular arrhythmia , then shock would be noted. Per event crew technician, troponin elevation was not consistent with acute coronary syndrome. There were some dynamic EKG changes however they were not consistent with NSTEMI and represented the precordial leads with early repolarization abnormality in addition to presence of LVH repolarization abnormality in the lateral leads. Patient had a prior history of CT, but it was unclear if he had a prior history of cardiac catheterization. With all the comorbidities, event crew technician recommended medical therapy. Anti-platelet therapy with aspirin and statin continued. Lipid panel within normal limits. Antihypertensive medication regimen was optimized to keep blood pressure under control. Blood pressure was managed with multiple antihypertensive regimen, including calcium channel olga, hydralazine, beta-olga and Hytrin. Blood pressure stabilized. Intelligence Analyst closely followed. Patient initially started on the IV fluids. Renal parameters and electrolytes were closely monitored, electrolytes corrected as needed, and nephrotoxins were avoided. Creatinine from 2.2 down to 1.6 and BUN from 41 down to 28. Acute kidney injury injury was likely due to dehydration, superimposed on chronic renal failure. Hemoglobin and hematocrit were closely monitored with goal to keep hemoglobin above 7. Anemia work-up was consistent with anemia of chronic disease. B12 and folate stable Diabetic diet provided. Blood sugar was managed with sliding scale of insulin. Home medication continued. Supportive care provided. Patient clinically stabilized and was ready for discharge . FINAL DIAGNOSES: Status post fall Slight elevation of troponin Acute on chronic renal failure, partially dehydration Diabetes mellitus Hyperglycemia Diabetic nephropathy Hypertension Psychosis Possible syncope Hyperglycemia DISCHARGE MEDICATIONS: See Medication Reconciliation list. DISCHARGE INSTRUCTIONS: Patient was discharged to the custodial facility. Follow up with medical doctor at the facility. I have been assigned to dictate discharge summary for this account. I was not involved in the patient's management. Toña Doyle NP Apr 24, 2019 14:59
== END 2019-04-23 13:18 | DRG 684 ==
LOC: EDBD 20:02 → EDUNIT# 20:02 → EMR 20:40 → 2E 20:58 → EDBEDREQ 22:03
DX: N17.9 Acute kidney failure, unspecified (principal); E86.0 Dehydration; I25.2 Old myocardial infarction; E11.21 Type 2 diabetes mellitus with diabetic nephropathy; E11.65 Type 2 diabetes mellitus with hyperglycemia; F29 Unspecified psychosis not due to a substance or known physiological condition; G30.9 Alzheimer's disease, unspecified; F02.80 Dementia in other diseases classified elsewhere, unspecified severity, without behavioral disturbance, psychotic disturbance, mood disturbance, and anxiety; J44.9 Chronic obstructive pulmonary disease, unspecified; N40.0 Benign prostatic hyperplasia without lower urinary tract symptoms; G40.909 Epilepsy, unspecified, not intractable, without status epilepticus; Z91.81 History of falling; F79 Unspecified intellectual disabilities; Z95.810 Presence of automatic (implantable) cardiac defibrillator; R74.8 Abnormal levels of other serum enzymes
CPT/HCPCS: 36415; 70450; 71045; 80053; 80061; 80164; 80185; 81003; 82550; 82607; 82728; 82746; 82962; 82977; 83036; 83540; 83550; 83735; 83880; 84100; 84300; 84443; 84484; 84550; 85025; 85610; 86140; 87081; 93005; 93306; 99285; J1815; S5561

== ENCOUNTER 2020-01-12 16:33 | Emergency (ER) | payer MEDICARE, MEDICAID ==
[~2020-01-12] VITALS: Ht 177.8 cm; Wt 81.6 kg
--- NOTE | 2020-01-12 16:32 | Emergency Room Report ---
History of Present Illness General Source: Patient Present Illness HPI 54M with past medical history of diabetes, hypertension, CAD, CKD, COPD, Alzheimer's, seizure disorder on Depakote, encephalopathy, schizo, brought in by ambulance from [facility] after being sent by PMD Dr. Wasserman for syncope. Patient reports feeling more tired than usual. He states that he does not have any pain anywhere including headache, neck pain, chest pain, back pain, abdominal pain. Denies melena, hematochezia, hematuria, dysuria, rash, or syncope. He does not remember falling earlier. He denies blood thinner use. He states that he has been compliant with his Depakote. The patient's symptoms were gradual onset, severity was moderate, duration since 1 days. Quality: Denies pain Past medical history: Diabetes, hypertension, CAD, CKD, COPD, Alzheimer's, seizure disorder, encephalopathy, schizo Past surgical history: Denies Smoking: Denies Alcohol use: Denies Drug use: Denies Review of systems: CONST: Positive fevers no chills, No night sweats PULMONARY: No productive cough, No shortness of breath CARDIAC: No chest pain, No palpitations GI: No vomiting, No diarrhea , No melena_or_BRBPR : No dysuria, No hematuria, No discharge NEURO: No new_focal_weakness_or_numbness, No confusion, No vision changes 14 point Review of Systems is otherwise negative except per HPI Physical Exam: GENERAL: Awake_alert_ nontoxic, no acute distress Spo2 93% on RA -normal. Febrile EYES: Extraocular muscles are intact. Conjunctivae clear. Lids without swelling ENT: External nose and ear normal_in_appearance. Oropharynx clear. Head_atraumatic, Moist_oral_mucosa NECK: No JVD. No meningismus. No thyromegaly. Supple. Trachea midline RESP: Normal respiratory effort. Symmetric rise. No stridor. Clear_to_auscultation_No_rales_No_wheezes CARDIAC: Regular rate and regular rhytm. No_significant pedal edema. ABDOMEN: Soft. Nondistended. Nontender_No_rebound_or_guarding. MSK: Normal muscle tone, without rigidity. Extremities without asymmetric deformity or swelling. SKIN: Warm and dry. No visible cyanosis or pallor NEUROLOGIC: Alert, oriented x3. Motor_and_sensation_grossly_intact. No truncal ataxia. Gait_normal Psych: Normal mood and affect, normal judgment and insight - COORDINATION OF CARE Case was discussed with: Patient , Patient's Physician Any labs and imaging that were ordered were interpreted as part of the medical decision making: Medical Decision Making/Plan: Differential diagnosis for the patients symptoms include , malignant arrhythmias, obstructive heart disease (critical aortic stenosis, hypertrophic cardiomyopathy), acute anemia, severe dehydration, electrolyte abnormalities, among others. Patient's exam shows he is generally weak without any focal neurologic deficits. He has rectal temperature of 102.3. Accu-Chek was 46. No focal neurologic deficits. No nuchal rigidity. No petechial rash. EKG is consistent with septal MN with lateral ST depressions/reciprocal changes. Troponin is elevated at 14. CXR shows pulmonary vascular congestion with pacemaker versus multifocal interstitial pneumonia Covid swab is positive . Blood cultures, lactate drawn. Lactate was elevated , patient was NOT given 30 cc/kg IV fluids by bolus. Patient refused NS 30 cc/kg bolus secondary to history of CKD Empiric antibiotics were started. Due to critically elevated troponin, patient was given aspirin 325 mg. Nitro applied. Twelve-lead EKG faxed to [facility] for stat 911 STEMI transfer at 1800 Patient will be immediately transferred to the Claims Sorter. Care transition to the process control board operator The patient has been stabilized to the best of this emergency department's capabilities. Given the patient's medical needs, appropriate facilities for transfer were discussed and the decision has been made to transfer this patient to [facility] 911 STEMI The receiving facility has the capacity and capabilities to provide care for the patient. I spoke with Dr Angel Morgan who accepted the patient in transfer. The patient has been informed and updated of their current clinical status. The patient has given verbal consent for the transfer. The risks and benefits were explained and the patient verbalizes their understanding. Allergies: Coded Allergies: No Known Allergies (Unverified , 08/31/17) Physical Exam Sp02 EP Interpretation: reviewed, normal Procedures Critical Care Time Critical Care Time Critical Care Statement Organ systems at risk include: [cardiac / circulatory] Critical care performed for 55 minutes. Time is exclusive of separately billable procedures. Time includes: direct patient care, continuous monitoring and multiple patient reassessment, coordination of patient care, review of patient's medical records, medical consultation, family consultation regarding treatment decisions and documentation of patient care. Medical Decision Making Diagnostic Impression: Primary Impression: Syncope Additional Impressions: Hypoglycemia Seizure disorder Sepsis Fever STEMI (ST elevation myocardial infarction) Hypertension COPD (chronic obstructive pulmonary disease) EKG Diagnostic Results Troponin ordered: Yes When was troponin ordered?: Jan 12, 2020 MARIS Frederick 12-lead EKG (interpreted by ) Time: 1757 Indication: Rhythm analysis Tracing visualized and Interpreted by me. Rhythm: Normal sinus rhythm Rate: 86 bpm QTc: 423 Morphology: No_significant_ST_elevations_or_depressions, No STEMI Impression: ST elevation in lead V2, V3. ST depression in lead V5 and V6. T wave inversion in lead aVF Rhythm Strip Diag. Results Rhythm Strip Time: 16:48 EP Interpretation: yes Rate: 91 Rhythm: NSR, no PVC's, no ectopy Chest X-Ray Diagnostic Results Chest X-Ray Diagnostic Results : MARIS Frederick Chest X-Ray: Views: 1 view(s) Indication: Syncope Findings: Normal heart size. Mediastinum normal. Diffuse infiltrate Impression: Diffuse airspace opacities which may represent pulmonary vascular congestion versus an infectious process. Left-sided pacemaker The X-ray(s) were independently viewed and interpreted contemporaneously Electronically signed by Angelica veloz DO Reevaluation Time: 18:16 Status: improved Disposition: ADMITTED INPATIENT - 911 STEMI TRANSFER Admit Decision Time: 16:49 Condition: Stable Angelica Mendoza D.O. Jan 12, 2020 16:32
[~2020-01-12 16:33] MED LIST changes: +ACETAMINOPHEN500 MG ORAL; +ATORVASTATIN CA40 MG ORAL; +CATAPRES0.2 MG ORAL; +DULCOLAX10 MG RC; +FISH OIL CAP1000 MG ORAL; +FLEET ENEMA133 ML RECTAL; +HYDRALAZINE HC100 MG ORAL; +METOPROLOL TAR100 M1 ORAL; +NORVASC10 MG ORAL; +NOVOLOG100 UNITS1; +TERAZOSIN HCL1 MG ORAL; +TYLENOL325 MG ORAL; +ZYPREXA2.5 MG ORAL
--- NOTE | 2020-01-12 16:40 | NUR ---
ED Nurse Note: Patient arrives via [facility] from [facility]. Per stuff pt was found at side of his bed and relates he was trying to go to up and fell. Patient presentyed very weak, sleepy, AAO x1, BP 227/89, BS 47. Patient was connected to monitor ER MD at bed side
[2020-01-12] MEDS ORDERED: dexAMETHasone 10mg/ml Inj IV SCH (16:45)
[2020-01-12] MEDS ORDERED: Vancomycin 1 GM in NS 275 ML IVPB ONE (16:45)
--- NOTE | 2020-01-12 16:45 | NUR ---
ED Nurse Note: IV line was established on right wrist 22ga, blood collected sent to lab
--- NOTE | 2020-01-12 16:47 | NUR ---
ED Nurse Note: patient was swabed for COVID sent to lab
[2020-01-12] MEDS ORDERED: ISOSORBIDE MON120 M1 PO (17:09)
[2020-01-12] MEDS ORDERED: LEVEMIR FL100 UNIT/2 SQ (17:11)
[2020-01-12] MEDS ORDERED: UTI-STAT L3875 MG/31 PO (17:14)
[2020-01-12 17:16] VITALS: BP 181/75
[2020-01-12 17:28] LABS: BASOPHILS % (AUTO) 1.8 % (0.0-2.0); EOSINOPHILS % (AUTO) 0.2 % (0.0-3.0); HEMOGLOBIN 9.9 G/DL (14.2-18.0); LYMPHOCYTES % (AUTO) 5.3 % (20.0-45.0); MEAN CORPUSCULAR VOLUME 88 FL (80-99); MONOCYTES % (AUTO) 10.7 % (1.0-10.0); NEUTROPHILS % (AUTO) 82.1 % (45.0-75.0); PLATELET COUNT 167 K/UL (150-450); RED CELL DISTRIBUTION WIDTH 13.9 % (11.6-14.8); WHITE BLOOD COUNT 7.1 K/UL (4.8-10.8)
[2020-01-12] MEDS ORDERED: Acetaminophen 650 MG SUPP RECTAL ONE (17:30)
[2020-01-12] MEDS ORDERED: D5 1/2NS 1,000 ML IV SCH (17:30)
--- NOTE | 2020-01-12 17:38 | Diagnostic Imaging Report ---
EXAM: XR Chest, 1 View CLINICAL HISTORY: SYNCOPE TECHNIQUE: Frontal view of the chest. COMPARISON: 04/20/2019 FINDINGS: Lungs: Diffuse airspace opacities which may represent pulmonary vascular congestion versus an infectious process. Pleural space: Unremarkable. Heart: Unremarkable. Mediastinum: Unremarkable. Bones/joints: Unremarkable. Tubes, lines and devices: Single lead cardiac pacemaker/AICD is noted. IMPRESSION: Diffuse airspace opacities which may represent pulmonary vascular congestion versus an infectious process.
[2020-01-12 17:53] LABS: ALANINE AMINOTRANSFERASE 50 U/L (12-78); ALBUMIN 3.8 G/DL (3.4-5.0); ALBUMIN/GLOBULIN RATIO 0.9 (1.0-2.7); ALKALINE PHOSPHATASE 268 U/L (46-116); ASPARTATE AMINO TRANSFERASE 55 U/L (15-37); BLOOD UREA NITROGEN 31 mg/dL (7-18); CALCIUM 8.1 MG/DL (8.5-10.1); CARBON DIOXIDE 28 MMOL/L (21-32); CREATINE KINASE 362 U/L (26-308); CREATININE 2.7 MG/DL (0.55-1.30)
[2020-01-12 17:56] LABS: PHOSPHORUS 3.7 MG/DL (2.5-4.9)
[2020-01-12] MEDS ORDERED: Piperacillin/Tazobactam 4.5 GM in NS 110 ML IV ONE (18:00)
[2020-01-12] MEDS ORDERED: cefTRIAXone 1 GM in NS 55 ML IVPB ONE (18:00)
[2020-01-12 18:02] VITALS: BP 195/70
[2020-01-12 18:04] LABS: BILIRUBIN,TOTAL 0.2 MG/DL (0.2-1.0); CHLORIDE 108 MMOL/L (98-107); POTASSIUM 4.1 MMOL/L (3.5-5.1); SODIUM 145 MMOL/L (136-145)
[2020-01-12] MEDS ORDERED: Nitroglycerin Subl 0.4mg tab SL ONE (18:12)
[2020-01-12] MEDS ORDERED: Nitroglycerin 2% oint pkt TOPIC ONE ×2 (18:15→18:16)
[2020-01-12] MEDS ORDERED: Morphine Sulfate 4mg/ml Inj (IV USE ONLY) IVP ONE (18:15)
--- NOTE | 2020-01-12 18:30 | NUR ---
report given to dereje savage patient is to be transferd to [facility] er via 911 transport all paperwork and senior living papers send with patient
--- NOTE | 2020-01-12 18:31 | NUR ---
ED Nurse Note: [facility] at bed side to transfer patient to [facility] ER
[2020-01-12 18:36] VITALS: BP 183/65
--- NOTE | 2020-01-12 18:38 | NUR ---
ED Nurse Note: Patient was transfered to [facility] ER via [facility], by ACLS protocol, with all belongings. Patient AAO x1, BP 183/65, BS 98. Report given to EH Kidd.
--- NOTE | 2020-01-15 14:36 | Cardiology Report ---
APPROVED REPORT EKG Measurement Heart [id number] <Conclusion> Normal sinus rhythm ST elevation, consider anterior injury or acute infarct ACUTE AR / STEMI Abnormal ECG
== END 2020-01-12 18:36 | disposition other institution (70) ==
LOC: EDBD 16:33 → EMR 16:50 → EDBEDREQ 17:40 → EDBEDREQSVC 17:55 → EMR 18:36
DX: I21.09 ST elevation (STEMI) myocardial infarction involving other coronary artery of anterior wall (principal); A41.9 Sepsis, unspecified organism; R50.9 Fever, unspecified; R55 Syncope and collapse; G40.909 Epilepsy, unspecified, not intractable, without status epilepticus; J44.9 Chronic obstructive pulmonary disease, unspecified; E11.649 Type 2 diabetes mellitus with hypoglycemia without coma; E11.22 Type 2 diabetes mellitus with diabetic chronic kidney disease; I12.9 Hypertensive chronic kidney disease with stage 1 through stage 4 chronic kidney disease, or unspecified chronic kidney disease; N18.9 Chronic kidney disease, unspecified; G30.9 Alzheimer's disease, unspecified; I25.10 Atherosclerotic heart disease of native coronary artery without angina pectoris; Z79.4 Long term (current) use of insulin; Z79.899 Other long term (current) drug therapy
CPT/HCPCS: 36415; 71045; 80053; 80164; 82550; 82803; 83605; 83690; 83735; 83880; 84100; 84484; 85025; 85610; 85730; 87040; 93005; 96361; 96365; 96367; 96375; 99291; J0696; J2270; J2543; J7030; U0002